=== PATIENT | female | born 1995 | race Hispanic/Latino ===

== ENCOUNTER 2017-12-02 09:00 | Emergency (ER) | payer SELFPAY ==
--- NOTE | 2017-12-02 10:11 | ER ---
Nurse's Notes [facility] Name: Clara Ruth Age: 22 yrs Sex: Female : 1995 Arrival Date: 12/02/2017 Time: 09:03 Bed 15 Private MD: None, None Diagnosis: Acute tonsillitis Presentation: 12/02 09:04 Presenting complaint: Patient states: 2 days ago, my throat had a little itching and i hj woke up today with cough and sore throat; reports fever and chills;. Transition of care: patient was not received from another setting of care. Onset of symptoms was December 02, 2017. Care prior to arrival: None. 09:04 Method Of Arrival: Ambulatory hj 09:04 Acuity: PRATEEK 4 hj Triage Assessment: 09:06 General: Appears in no apparent distress. uncomfortable, Behavior is calm, cooperative, hj appropriate for age. Pain: Complains of pain in throat. EENT: Reports pain when swallowing. 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 - Social history:: Smoking status: unknown. Screenin:15 Abuse screen: Denies threats or abuse. Denies injuries from another. Nutritional jtb screening: No deficits noted. Tuberculosis screening: No symptoms or risk factors identified. Fall Risk None identified. Assessment: 09:06 Respiratory: Airway is patent Respiratory effort is even, unlabored, Respiratory hj pattern is regular, symmetrical, Breath sounds are clear. EENT: Throat. 09:15 General: Appears in no apparent distress. uncomfortable, Behavior is calm, cooperative, jtb appropriate for age. Pain: Complains of pain in Soar throat. Pain does not radiate. Pain currently is 6 out of 10 on a pain scale. Quality of pain is described as scratchy "like my throat is going to tear apart when I cough." Pain began 2-3 days ago. Is continuous. Neuro: Level of Consciousness is awake, alert, obeys commands, Oriented to person, place, time, situation. Cardiovascular: Patient's skin is warm and dry. Respiratory: Reports cough that is Airway is patent Respiratory effort is even, unlabored, Respiratory pattern is regular, symmetrical, Breath sounds are clear bilaterally. Denies shortness of breath. GI: No signs and/or symptoms were reported involving the gastrointestinal system. : No signs and/or symptoms were reported regarding the genitourinary system. EENT: Throat is reddened has enlarged tonsils. Derm: Skin is intact, Skin is dry, Skin is normal, Skin temperature is warm. Musculoskeletal: No signs and/or symptoms reported regarding the musculoskeletal system. Vital Signs: 09:06 BP 123 / 85; Pulse 104; Resp 18; Temp 97.8; Pulse Ox 100% on R/A; Weight 88.45 kg; hj Height 5 ft. 3 in. (160.02 cm); Pain 9/10; 10:00 BP 120 / 84; Pulse 100; Resp 18 S; Pulse Ox 100% on R/A; jl7 09:06 Body Mass Index 34.54 (88.45 kg, 160.02 cm) ED Course: 09:03 Patient arrived in ED. mr 09:03 None, None is Private Physician. mr 09:04 Gail Guardado FNP-C [facility]. kb 09:04 Darío Son MD is Attending Physician. kb 09:05 Triage completed. hj 09:06 Arm band placed on left wrist. hj 09:14 Strep Sent. mh5 09:14 Flu Sent. mh5 09:15 Patient has correct armband on for positive identification. Bed in low position. Call jtb light in reach. Side rails up X 1. Pulse ox on. NIBP on. 09:32 Kun Whitfield, CAMACHO is Primary Nurse. jl7 10:19 No provider procedures requiring assistance completed. Patient did not have IV access jl7 during this emergency room visit. Administered Medications: No medications were administered Outcome: 10:10 Discharge ordered by . kb 10:19 Attestation : I agree with everything documented by Baltazar Edward, Student Nurse. jl7 10:19 Discharged to home ambulatory. 10:19 Condition: stable 10:19 Discharge instructions given to patient, Instructed on discharge instructions, follow up and referral plans. medication usage, Demonstrated understanding of instructions, follow-up care, medications, Prescriptions given X 1. 10:20 Patient left the ED. jl7 Signatures: Gail Guardado FNP-C FNP-CkPaula Salinas mr Diego Carrion RN RN hj Paula Chaparro 5 Kun Whitfield RN RN jl7 Baltazar Edwardtb Corrections: (The following items were deleted from the chart) 09:08 09:06 BP 123 / 85; Pulse 110bpm; Resp 18bpm; Pulse Ox 100% RA; Temp 97.8F; 88.45 kg; hj Height 5 ft. 3 in.; BMI: 34.5; Pain 9/10; hj
--- NOTE | 2017-12-02 10:11 | EDPHYS ---
Physician Documentation [facility] Name: Clara Ruth Age: 22 yrs Sex: Female : 1995 Arrival Date: 12/02/2017 Time: 09:03 Bed 15 Private MD: None, None ED Physician Darío Son HPI: 12/02 09:28 This 22 yrs old Female presents to ER via Ambulatory with complaints of Cough, kb Sore Throat. 09:28 The patient or guardian reports cough, that is intermittent, described as moderate, kb with no sputum. Onset: The symptoms/episode began/occurred 3 day(s) ago. Severity of symptoms: At their worst the symptoms were moderate, in the emergency department the symptoms are unchanged. Modifying factors: The symptoms are alleviated by nothing, the symptoms are aggravated by nothing. Associated signs and symptoms: Pertinent positives: sore throat, Pertinent negatives: chest pain, diarrhea, ear ache, fever, nausea, rhinorrhea, vomiting. The patient has not experienced similar symptoms in the past. The patient has not recently seen a physician. 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 - Social history:: Smoking status: unknown. ROS: 09:28 Neck: Negative for injury, pain, and swelling, Cardiovascular: Negative for chest pain, kb palpitations, and edema, Abdomen/GI: Negative for abdominal pain, nausea, vomiting, diarrhea, and constipation, MS/Extremity: Negative for injury and deformity, Skin: Negative for injury, rash, and discoloration, Neuro: Negative for headache, weakness, numbness, tingling, and seizure. 09:28 Constitutional: Positive for chills, Negative for body aches, fatigue, fever, malaise, poor PO intake, weight loss. 09:28 ENT: Positive for sore throat. 09:28 Respiratory: Positive for cough, with no reported sputum. Exam: 09:28 Constitutional: This is a well developed, well nourished patient who is awake, alert, kb and in no acute distress. Head/Face: Normocephalic, atraumatic. Chest/axilla: Normal chest wall appearance and motion. Nontender with no deformity. No lesions are appreciated. Cardiovascular: Regular rate and rhythm with a normal S1 and S2. No gallops, murmurs, or rubs. Normal PMI, no JVD. No pulse deficits. Respiratory: Lungs have equal breath sounds bilaterally, clear to auscultation and percussion. No rales, rhonchi or wheezes noted. No increased work of breathing, no retractions or nasal flaring. Abdomen/GI: Soft, non-tender, with normal bowel sounds. No distension or tympany. No guarding or rebound. No evidence of tenderness throughout. Skin: Warm, dry with normal turgor. Normal color with no rashes, no lesions, and no evidence of cellulitis. MS/ Extremity: Pulses equal, no cyanosis. Neurovascular intact. Full, normal range of motion. Neuro: Awake and alert, GCS 15, oriented to person, place, time, and situation. Cranial nerves II-XII grossly intact. Motor strength 5/5 in all extremities. Sensory grossly intact. Cerebellar exam normal. Normal gait. 09:28 ENT: Posterior pharynx: Airway: normal, no evidence of obstruction, Tonsils: bilaterally enlarged, with erythema, Uvula: normal, midline, swelling, that is moderate, erythema, that is moderate, exudate, is not appreciated. Vital Signs: 09:06 BP 123 / 85; Pulse 104; Resp 18; Temp 97.8; Pulse Ox 100% on R/A; Weight 88.45 kg; Height 5 ft. 3 in. (160.02 cm); Pain 9/10; 10:00 BP 120 / 84; Pulse 100; Resp 18 S; Pulse Ox 100% on R/A; jl7 09:06 Body Mass Index 34.54 (88.45 kg, 160.02 cm) MDM: 09:11 Patient medically screened. kb 09:32 Data reviewed: vital signs, nurses notes. Data interpreted: Pulse oximetry: on room air kb is 100 %. Interpretation: normal. 10:10 Counseling: I had a detailed discussion with the patient and/or guardian regarding: the kb historical points, exam findings, and any diagnostic results supporting the discharge/admit diagnosis, lab results, the need for outpatient follow up, a family practitioner, to return to the emergency department if symptoms worsen or persist or if there are any questions or concerns that arise at home. 12/02 09:06 Order name: Flu 12/02 09:06 Order name: Strep 12/02 09:53 Order name: Influenza Screen (A ; Complete Time: 09:54 EDMS 12/02 09:54 Order name: Group A Streptococcus Rapid Sc; Complete Time: 09:54 EDMS Administered Medications: No medications were administered Disposition: 12/02/17 10:10 Discharged to Home. Impression: Acute tonsillitis. - Condition is Stable. - Discharge Instructions: Tonsillitis, [id number]. - Prescriptions for Augmentin 875- 125 mg Oral Tablet - take 1 tablet by ORAL route every 12 hours for 7 days; 14 tablet. - Medication Reconciliation Form, Thank You Letter, Antibiotic Education, Prescription Opioid Use, Work release form form. - Follow up: Emergency Department; When: As needed; Reason: Worsening of condition. Follow up: Private Physician; When: 2 - 3 days; Reason: Recheck today's complaints, Continuance of care, Re-evaluation by your physician. Addendum: 12/03/2017 10:33 Co-signature as Attending Physician, Darío Son MD I agree with the assessment and c abarca plan of care. Signatures: Dispatcher [employer] Gail Alarcon, REVERSE ENGINEER-C AMAN-Darío Bourgeois MD MD cha Joaquin, Henry, RN RN hj Kun Whitfield RN RN jl7
[2017-12-02 10:28] VITALS: TEMP 97.8; O2SAT 100
[2017-12-02 10:29] VITALS: BP 120/84
== END 2017-12-02 10:20 | disposition home or self-care (01) ==
LOC: ER 09:00
DX: J03.90 Acute tonsillitis, unspecified (principal); Z88.6 Allergy status to analgesic agent
CPT/HCPCS: 87070; 87081; 87804; 99283

== ENCOUNTER 2017-12-03 17:01 | Emergency (ER) | payer SELFPAY ==
[2017-12-03] MEDS ORDERED: DIPHENHYDRAMINE 50 MG/ML VIAL ONE (17:55)
[2017-12-03] MEDS ORDERED: METHYLPREDNISOLONE 125 MG INJ ONE (17:55)
--- NOTE | 2017-12-03 18:22 | ER ---
Nurse's Notes [facility] Name: Clara Ruth Age: 22 yrs Sex: Female : 1995 Arrival Date: 12/03/2017 Time: 17:02 Bed 8 Private MD: Diagnosis: Urticaria, unspecified Presentation: 12/03 17:17 Presenting complaint: Patient states: Reports hand swelling and itching and swelling to aj lips that started today. Patient took Dayquil today. Seen yesterday and DX with tonsillitis. Has not began ABX. Transition of care: patient was not received from another setting of care. Onset: The symptoms/episode began/occurred today. Anaphylaxis evaluation, no signs or symptoms of anaphylaxis were noted. Onset of symptoms was December 03, 2017. Care prior to arrival: None. 17:17 Method Of Arrival: Ambulatory 17:17 Acuity: PRATEEK 3 aj Triage Assessment: 17:19 General: Appears in no apparent distress. uncomfortable, Behavior is calm, cooperative, aj appropriate for age. Pain: Denies pain. EENT: Swelling to both lips. Neuro: Level of Consciousness is awake, alert, obeys commands, Oriented to person, place, time, situation. Respiratory: Airway is patent Respiratory effort is even, unlabored, Respiratory pattern is regular, symmetrical. Derm: Skin is intact, is healthy with good turgor, Skin is pink, warm \T\ dry. normal. 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 - Social history:: Smoking status: Patient/guardian denies using tobacco. - Family history:: not pertinent. - Hospitalizations: : No recent hospitalization is reported. Screenin:30 Abuse screen: Denies threats or abuse. Denies injuries from another. Nutritional hb screening: No deficits noted. Tuberculosis screening: No symptoms or risk factors identified. Fall Risk None identified. Assessment: 17:30 General: Appears in no apparent distress. Behavior is calm, cooperative. Pain: Denies hb pain. Neuro: Level of Consciousness is awake, alert, obeys commands, Oriented to person, place, time, situation. Cardiovascular: Capillary refill < 3 seconds Patient's skin is warm and dry. Respiratory: Airway is patent Respiratory effort is even, unlabored, Respiratory pattern is regular, symmetrical, Breath sounds are clear bilaterally. GI: No signs and/or symptoms were reported involving the gastrointestinal system. : No signs and/or symptoms were reported regarding the genitourinary system. EENT: No signs and/or symptoms were reported regarding the EENT system. Derm: Skin is pink, warm \T\ dry. Reports lip swelling and tingling. Musculoskeletal: Range of motion: intact in all extremities. 18:30 Reassessment: Patient appears in no apparent distress at this time. Patient and/or hb family updated on plan of care and expected duration. Pain level reassessed. Patient is alert, oriented x 3, equal unlabored respirations, skin warm/dry/pink. Patient denies pain at this time. Patient states feeling better. Patient states symptoms have improved. Vital Signs: 17:19 BP 130 / 88; Pulse 93; Resp 16; Temp 98.8; Pulse Ox 100% on R/A; Weight 88.45 kg; aj Height 5 ft. 3 in. (160.02 cm); Pain 0/10; 18:15 BP 128 / 78; Pulse 88; Resp 14; Pulse Ox 100% on R/A; Pain 0/10; hb 17:19 Body Mass Index 34.54 (88.45 kg, 160.02 cm) aj ED Course: 17:02 Patient arrived in ED. mr 17:18 Triage completed. aj 17:19 Arm band placed on left wrist. Patient placed in an exam room. aj 17:21 Salvador Guzman MD is Attending Physician. rn 17:30 Patient has correct armband on for positive identification. Bed in low position. Call hb light in reach. Side rails up X 1. 17:31 Alivia Pereira, CAMACHO is Primary Nurse. hb 18:51 No provider procedures requiring assistance completed. Patient did not have IV access hb during this emergency room visit. Administered Medications: 17:36 Drug: Benadryl 50 mg Route: IM; Site: right deltoid; hb 18:00 Follow up: Response: No adverse reaction hb 17:36 Drug: SOLU-Medrol 125 mg Route: IM; Site: right deltoid; hb 18:00 Follow up: Response: No adverse reaction hb Outcome: 18:21 Discharge ordered by . rn 18:51 Discharged to home ambulatory, with family. hb 18:51 Condition: stable 18:51 Discharge instructions given to patient, Instructed on discharge instructions, follow up and referral plans. medication usage, Demonstrated understanding of instructions, follow-up care, medications, Prescriptions given X 1. 18:52 Patient left the ED. hb Signatures: Kamryn Mascorro RN RN aj Rivera, Maria mr Nieto, Roman, MD MD rn Baxter, Heather, RN RN hb
--- NOTE | 2017-12-03 18:22 | EDPHYS ---
Physician Documentation [facility] Name: Clara Ruth Age: 22 yrs Sex: Female : 1995 Arrival Date: 12/03/2017 Time: 17:02 Bed 8 Private MD: ED Physician Salvador Guzman HPI: 12/03 17:30 This 22 yrs old Female presents to ER via Ambulatory with complaints of rn Allergic Reaction. 17:30 The patient presents with itching, rash. Onset: The symptoms/episode began/occurred rn today. Possible causes: The patient has no known obvious cause for the symptoms. Severity of symptoms: in the emergency department the symptoms are unchanged. The patient has not experienced similar symptoms in the past. Reports itching, diffusely, took dayquil today, has taken before but this time took one from [employer], has allergy to aleve, didn't check type of dayquil or ingredients, no trouble swallowing or breathing. . 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 - Social history:: Smoking status: Patient/guardian denies using tobacco. - Family history:: not pertinent. - Hospitalizations: : No recent hospitalization is reported. ROS: 17:30 Constitutional: Negative for fever, chills, and weight loss, Eyes: Negative for injury, rn pain, redness, and discharge, Neck: Negative for injury, pain, and swelling, Cardiovascular: Negative for chest pain, palpitations, and edema, Respiratory: Negative for shortness of breath, cough, wheezing, and pleuritic chest pain, Abdomen/GI: Negative for abdominal pain, nausea, vomiting, diarrhea, and constipation, Back: Negative for injury and pain, MS/Extremity: Negative for injury and deformity, Skin: Negative for injury Neuro: Negative for headache, weakness, numbness, tingling, and seizure. Exam: 17:30 Constitutional: This is a well developed, well nourished patient who is awake, alert, rn and in no acute distress. Head/Face: Normocephalic, atraumatic. Eyes: Pupils equal round and reactive to light, extra-ocular motions intact. Lids and lashes normal. Conjunctiva and sclera are non-icteric and not injected. Cornea within normal limits. Periorbital areas with no swelling, redness, or edema. ENT: no oral lesions, no stridor, + mild tonsillar hypertrophy Skin: diffuse urticaria, no skin sloughing Neuro: Awake and alert, GCS 15, oriented to person, place, time, and situation. Cranial nerves II-XII grossly intact. Motor strength 5/5 in all extremities. Sensory grossly intact. Cerebellar exam normal. Normal gait. Vital Signs: 17:19 BP 130 / 88; Pulse 93; Resp 16; Temp 98.8; Pulse Ox 100% on R/A; Weight 88.45 kg; aj Height 5 ft. 3 in. (160.02 cm); Pain 0/10; 18:15 BP 128 / 78; Pulse 88; Resp 14; Pulse Ox 100% on R/A; Pain 0/10; hb 17:19 Body Mass Index 34.54 (88.45 kg, 160.02 cm) aj MDM: 17:21 Patient medically screened. rn 18:20 Differential diagnosis: urticaria. Data reviewed: vital signs, nurses notes, and as a rn result, I will discharge patient. Counseling: I had a detailed discussion with the patient and/or guardian regarding: the historical points, exam findings, and any diagnostic results supporting the discharge/admit diagnosis, the need for outpatient follow up, to return to the emergency department if symptoms worsen or persist or if there are any questions or concerns that arise at home. Response to treatment: the patient's symptoms have markedly improved after treatment, and as a result, I will discharge patient. Special discussion: I discussed with the patient/guardian in detail that at this point there is no indication for admission to the hospital. It is understood, however, that if the symptoms persist or worsen the patient needs to return immediately for re-evaluation. Administered Medications: 17:36 Drug: Benadryl 50 mg Route: IM; Site: right deltoid; hb 18:00 Follow up: Response: No adverse reaction hb 17:36 Drug: SOLU-Medrol 125 mg Route: IM; Site: right deltoid; hb 18:00 Follow up: Response: No adverse reaction hb Disposition: 12/03/17 18:21 Discharged to Home. Impression: Urticaria, unspecified. - Condition is Stable. - Discharge Instructions: Hives. - Prescriptions for Prednisone 20 mg Oral Tablet - take 3 tablet by ORAL route once daily for 5 days; 15 tablet. - Medication Reconciliation Form, Thank You Letter, Antibiotic Education, Prescription Opioid Use form. - Follow up: Private Physician; When: As needed; Reason: Recheck today's complaints, Re-evaluation by your physician. - Problem is new. - Symptoms have improved. Signatures: Kamryn Mascorro, RN RN Salvador Ruiz MD MD rn Baxter, Heather, RN RN
[2017-12-03 19:21] VITALS: TEMP 98.8; O2SAT 100
[2017-12-03 19:22] VITALS: BP 128/78
== END 2017-12-03 18:52 | disposition home or self-care (01) ==
LOC: ER 17:01
DX: L50.9 Urticaria, unspecified (principal)
CPT/HCPCS: 96372; 99283; J2930

== ENCOUNTER 2018-01-11 06:04 | Emergency (ER) | payer SELFPAY ==
--- OUTSIDE RECORDS SUMMARY | 2018-01-11 06:07 | XMS REPORT | Clinical Summary ---
:1995 Author Organization [facility] Address [address] [place] [address] Phone Care Team Providers Name Role Phone Unavailable Primary Care Provider Unavailable Allergies Active Allergy Reactions Severity Noted Date Comments Naproxen Sodium Hives 02/15/2014 Current Medications No known medications Active Problems Not on file Social History Tobacco Use Types Packs/Day Years Used Date Former Smoker Cigarettes 2 Alcohol Use Drinks/Week oz/Week Comments No Sex Assigned at Date Recorded Not on file Last Filed Vital Signs Not on file Plan of Treatment Not on file Results Not on fileafter 01/10/2017
[2018-01-11] MEDS ORDERED: DEXAMETHASONE 4 MG/ML VIAL ONE (06:53)
--- NOTE | 2018-01-11 07:25 | ER ---
Nurse's Notes [facility] Name: Clara Ruth Age: 22 yrs Sex: Female : 1995 Arrival Date: 01/11/2018 Time: 06:08 Bed 5 Private MD: Diagnosis: Acute pharyngitis Presentation: 01/11 06:10 Presenting complaint: Patient states: that for the past 2 days she has been having fc swollen tonsils, nasal congestion, sore achy body and itching all over. Also has a headache. Transition of care: patient was not received from another setting of care. Onset of symptoms was January 09, 2018. Initial Sepsis Screen: Does the patient meet any 2 criteria? HR > 90 bpm. Yes Does the patient have a suspected source of infection? Yes: No. Patient's initial sepsis screen is negative. Care prior to arrival: None. 06:10 Method Of Arrival: Ambulatory 06:10 Acuity: PRATEEK 4 Triage Assessment: 06:10 Headache History: The patient has had previous headaches. General: Appears fc uncomfortable, Behavior is calm, cooperative, appropriate for age. Pain: Complains of pain in throat Pain currently is 10 out of 10 on a pain scale. Quality of pain is described as burning, aching, Pain began 2-3 days ago. Is continuous, Also complains of no other associated symptoms. EENT: Throat is reddened has enlarged tonsils bilaterally Reports nasal congestion. Neuro: Level of Consciousness is awake, alert, obeys commands, Oriented to person, place, time, situation, Leather Whitener are equal bilaterally Moves all extremities. Full function Gait is steady, Speech is normal, Facial symmetry appears normal, Reports headache in entire. Cardiovascular: No deficits noted. Respiratory: No deficits noted. GI: No deficits noted. : No deficits noted. Derm: Skin is pink, warm \T\ dry. Reports itching. Musculoskeletal: Circulation, motion, and sensation intact. Capillary refill < 3 seconds, Range of motion: intact in all extremities. 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 - Social history:: Smoking status: Patient/guardian denies using tobacco, Patient uses street drugs, marijuana, Patient/guardian denies using alcohol. Screenin:23 Abuse screen: Denies threats or abuse. Nutritional screening: No deficits noted. Tuberculosis screening: No symptoms or risk factors identified. Fall Risk None identified. Assessment: 06:10 General: Appears in no apparent distress. comfortable, Behavior is calm, cooperative, bp appropriate for age. Pain: Complains of pain in neck. Neuro: Level of Consciousness is awake, alert, obeys commands, Oriented to person, place, time, situation, Appropriate for age. Cardiovascular: No deficits noted. Respiratory: Airway is patent Respiratory effort is even, Respiratory pattern is regular. GI: No deficits noted. : No deficits noted. EENT: Throat has patchy exudate has enlarged tonsils bilaterally with gag reflex present. Derm: No deficits noted. Musculoskeletal: Circulation, motion, and sensation intact. Range of motion: intact in all extremities. 07:20 Reassessment: Patient appears in no apparent distress at this time. Patient is resting ae1 with eyes closed, respirations even and unlabored, patient easily awakened by verbal stimuli. Warm blanket provided, lights dimmed per patient. Vital Signs: 06:10 BP 121 / 91; Pulse 112; Resp 18; Temp 99.2(O); Pulse Ox 100% on R/A; Weight 86.18 kg (R); Height 5 ft. 3 in. (160.02 cm) (R); Pain 10/10; 07:32 BP 128 / 97; Pulse 99; Resp 18; Pulse Ox 99% on R/A; ae1 06:10 Body Mass Index 33.66 (86.18 kg, 160.02 cm) ED Course: 06:08 Patient arrived in ED. al2 06:10 Arm band placed on Patient placed in an exam room, on a stretcher. 06:13 Kamlesh Mercado PA is PHCP. jr8 06:13 Darío Son MD is Attending Physician. jr8 06:18 Mamadou Brand, CAMACHO is Primary Nurse. bp 06:19 Triage completed. 06:23 Patient has correct armband on for positive identification. Bed in low position. Call fc light in reach. Pulse ox on. NIBP on. 06:23 No provider procedures requiring assistance completed. 07:33 Patient did not have IV access during this emergency room visit. ae1 Administered Medications: 07:06 Drug: Decadron 4 mg Route: IM; Site: right deltoid; bp 07:35 Follow up: Response: No adverse reaction ae1 Outcome: 07:24 Discharge ordered by MD. becker 07:33 Discharged to home ambulatory. ae1 07:33 Condition: stable 07:33 Discharge instructions given to patient, Instructed on discharge instructions, follow up and referral plans. medication usage, Demonstrated understanding of instructions, Prescriptions given X 1. 07:34 Patient left the ED. ae1 Signatures: Nilam Graham RN RN Kamlesh Mercado PA PA jr8 Elliott, Andrea, RN RN ae1 Mamadou Brand RN RN bp Choe, Kimmie hector
--- NOTE | 2018-01-11 07:25 | EDPHYS ---
Physician Documentation [facility] Name: Clara Ruth Age: 22 yrs Sex: Female : 1995 Arrival Date: 01/11/2018 Time: 06:08 Bed 5 Private MD: ED Physician Darío Son HPI: 01/11 06:53 This 22 yrs old Female presents to ER via Ambulatory with complaints of jr8 Headache, Sore Throat. 06:53 The patient complains of pain to the forehead. Onset: The symptoms/episode jr8 began/occurred acutely, yesterday. Associated signs and symptoms: Pertinent positives: sore throat . Severity of symptoms: At its worst the pain was mild, in the emergency department the pain is unchanged. The patient has not experienced similar symptoms in the past. The patient has not recently seen a physician. 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 - Social history:: Smoking status: Patient/guardian denies using tobacco, Patient uses street drugs, marijuana, Patient/guardian denies using alcohol. ROS: 06:53 Eyes: Negative for injury, pain, redness, and discharge, Neck: Negative for injury, jr8 pain, and swelling, Cardiovascular: Negative for chest pain, palpitations, and edema, Respiratory: Negative for shortness of breath, cough, wheezing, and pleuritic chest pain, Abdomen/GI: Negative for abdominal pain, nausea, vomiting, diarrhea, and constipation, Back: Negative for injury and pain, MS/Extremity: Negative for injury and deformity, Skin: Negative for injury, rash, and discoloration. 06:53 ENT: Positive for sore throat, Negative for drainage from ear(s), ear pain, nasal discharge, rhinorrhea, sinus congestion, sinus pain. 06:53 Neuro: Positive for headache, Negative for altered mental status, dizziness, gait disturbance, hearing loss, loss of consciousness, numbness, seizure activity, speech changes, syncope, near syncope, tingling, tinnitus, tremor, visual changes, weakness. Exam: 06:53 Constitutional: This is a well developed, well nourished patient who is awake, alert, jr8 and in no acute distress. Eyes: Pupils equal round and reactive to light, extra-ocular motions intact. Lids and lashes normal. Conjunctiva and sclera are non-icteric and not injected. Cornea within normal limits. Periorbital areas with no swelling, redness, or edema. Neck: Trachea midline, no thyromegaly or masses palpated, and no cervical lymphadenopathy. Supple, full range of motion without nuchal rigidity, or vertebral point tenderness. No Meningismus. Cardiovascular: Regular rate and rhythm with a normal S1 and S2. No gallops, murmurs, or rubs. Normal PMI, no JVD. No pulse deficits. Respiratory: Lungs have equal breath sounds bilaterally, clear to auscultation and percussion. No rales, rhonchi or wheezes noted. No increased work of breathing, no retractions or nasal flaring. Abdomen/GI: Soft, non-tender, with normal bowel sounds. No distension or tympany. No guarding or rebound. No evidence of tenderness throughout. Back: No spinal tenderness. No costovertebral tenderness. Full range of motion. Skin: Warm, dry with normal turgor. Normal color with no rashes, no lesions, and no evidence of cellulitis. MS/ Extremity: Pulses equal, no cyanosis. Neurovascular intact. Full, normal range of motion. Neuro: Awake and alert, GCS 15, oriented to person, place, time, and situation. Cranial nerves II-XII grossly intact. Motor strength 5/5 in all extremities. Sensory grossly intact. Cerebellar exam normal. Normal gait. 06:53 ENT: Exam is negative for earache, ear discharge, hemotympanum, TM abnormalities, nasal discharge, Mouth: Lips: moist, Oral mucosa: pink and intact, moist, Gums: pink, Tongue: is moist, Posterior pharynx: Airway: patent, Tonsils: bilaterally enlarged, with erythema, with exudate, no ulcerations, Uvula: midline, non-edematous, no erythema, swelling, is not appreciated, erythema, that is mild. Vital Signs: 06:10 BP 121 / 91; Pulse 112; Resp 18; Temp 99.2(O); Pulse Ox 100% on R/A; Weight 86.18 kg fc (R); Height 5 ft. 3 in. (160.02 cm) (R); Pain 10/10; 07:32 BP 128 / 97; Pulse 99; Resp 18; Pulse Ox 99% on R/A; ae1 06:10 Body Mass Index 33.66 (86.18 kg, 160.02 cm) MDM: 06:13 Patient medically screened. 8 07:22 Data reviewed: vital signs, nurses notes, lab test result(s), and as a result, I will jr8 discharge patient. Data interpreted: Pulse oximetry: on room air is 100 %. Interpretation: normal. Counseling: I had a detailed discussion with the patient and/or guardian regarding: the historical points, exam findings, and any diagnostic results supporting the discharge/admit diagnosis, lab results, the need for outpatient follow up, a family practitioner, to return to the emergency department if symptoms worsen or persist or if there are any questions or concerns that arise at home. 01/11 06:37 Order name: Strep; Complete Time: 07:22 jr 01/11 06:48 Order name: Urine Dipstick--Ancillary (enter results) [facility] 01/11 06:48 Order name: Urine --Ancillary (enter results) [facility] 01/11 06:48 Order name: Urine Dipstick-Ancillary (obtain specimen); Complete Time: 06:48 [facility] 01/11 07:04 Order name: Throat Culture [facility] 01/11 06:48 Order name: Urine Test (obtain specimen); Complete Time: 06:48 em Administered Medications: 07:06 Drug: Decadron 4 mg Route: IM; Site: right deltoid; bp 07:35 Follow up: Response: No adverse reaction ae1 Disposition: 14:28 Co-signature as Attending Physician, Darío Son MD I agree with the assessment and johanna plan of care. Disposition: 01/11/18 07:24 Discharged to Home. Impression: Acute pharyngitis. - Condition is Stable. - Discharge Instructions: Pharyngitis, Salt Water Gargle. - Prescriptions for Augmentin 875- 125 mg Oral Tablet - take 1 tablet by ORAL route every 12 hours for 10 days; 20 tablet. - Work release form, Medication Reconciliation Form, Thank You Letter, Antibiotic Education, Prescription Opioid Use form. - Follow up: Private Physician; When: 1 week; Reason: Recheck today's complaints, Continuance of care, Re-evaluation by your physician. - Problem is new. - Symptoms have improved. Signatures: Dispatcher [employer] Darío Tatum MD MD cha Chretien, Felicia, RN RN Davie Ball em1 Kamlesh Mercado PA PA jr8 Toni Azar RN RN ae1 Mamadou Brand RN RN bp
[2018-01-11 07:39] VITALS: TEMP 99.2
[2018-01-11 07:40] VITALS: BP 128/97; O2SAT 99
[2018-01-11 08:43] LABS: Urine Blood 3+ (NEG); Urine Glucose NEGATIVE (NEG); Urine Protein 2+ (NEG); Urine Specific Gravity 1.025 (1.005-1.030)
== END 2018-01-11 07:34 | disposition home or self-care (01) ==
LOC: ER 06:04
DX: J02.9 Acute pharyngitis, unspecified (principal)
CPT/HCPCS: 81003; 81025; 87070; 87081; 96372; 99283

== ENCOUNTER 2018-03-06 15:26 | Emergency (ER) | payer SELFPAY ==
--- OUTSIDE RECORDS SUMMARY | 2018-03-06 15:29 | XMS REPORT | Clinical Summary ---
:1995 Author Organization [facility] Address [address] [place] [address] Phone Care Team Providers Name Role Phone [...] Not on file Results Not on fileafter 03/05/2017
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
[2018-03-06 17:45] VITALS: BP 124/89; TEMP 97.7; O2SAT 100
== END 2018-03-06 17:13 | disposition home or self-care (01) ==
LOC: ER 15:26
DX: S13.4XXA Sprain of ligaments of cervical spine, initial encounter (principal); V57.5XXA Driver of pick-up truck or van injured in collision with fixed or stationary object in traffic accident, initial encounter
CPT/HCPCS: 70450; 72125; 99284

== ENCOUNTER 2018-04-21 12:38 | Emergency (ER) | payer SELFPAY ==
--- OUTSIDE RECORDS SUMMARY | 2018-04-21 12:40 | XMS REPORT | Clinical Summary ---
:1995 Author Organization [facility] Address [address] [place] [address] Phone Care Team Providers Name Role Phone [...] Not on file Results Not on fileafter 04/20/2017
--- NOTE | 2018-04-21 14:14 | EDPHYS ---
Physician Documentation [facility] Name: Clara Ruth Age: 22 yrs Sex: Female : 1995 Arrival Date: 04/21/2018 Time: 12:41 Bed 25 Private MD: None, None ED Physician Darío Son HPI: 04/21 14:06 This 22 yrs old Female presents to ER via Ambulatory with complaints of Knee jr8 Pain. 14:06 Onset: The symptoms/episode began/occurred gradually, 3 week(s) ago. Modifying factors: jr8 The symptoms are alleviated by nothing. the symptoms are aggravated by movement, weight bearing. Associated signs and symptoms: The patient has no apparent associated signs or symptoms. Severity of symptoms: At their worst the symptoms were mild, in the emergency department the symptoms are unchanged. The patient has not experienced similar symptoms in the past. The patient has not recently seen a physician. Patient stated that she fell on knee some weeks ago. Stated that she has had pain since then with weight bearing and twisting of knee. Worse the other day and wanted it to be evaluated . DIRECTOR COUNCIL ON AGING: 13:16 LMP N/A - control method ch Historical: - Allergies: 13:16 Aleve; ch - Home Meds: 13:16 IUD [Active]; ch - PMHx: 13:16 None; ch - PSHx: 13:16 Cholecystectomy; r hand; ch - Immunization history:: Adult Immunizations up to date, Flu vaccine is not up to date. - Social history:: Smoking status: Patient/guardian denies using tobacco, Patient uses alcohol, but reports only rare drinking. Patient/guardian denies using street drugs. - Ebola Screening: : Patient negative for fever greater than or equal to 101.5 degrees Fahrenheit, and additional compatible Ebola Virus Disease symptoms Patient denies exposure to infectious person Patient denies travel to an Ebola-affected area in the 21 days before illness onset No symptoms or risks identified at this time. ROS: 14:06 Eyes: Negative for injury, pain, redness, and discharge, ENT: Negative for injury, jr8 pain, and discharge, Neck: Negative for injury, pain, and swelling, Cardiovascular: Negative for chest pain, palpitations, and edema, Respiratory: Negative for shortness of breath, cough, wheezing, and pleuritic chest pain, Abdomen/GI: Negative for abdominal pain, nausea, vomiting, diarrhea, and constipation, Back: Negative for injury and pain, Skin: Negative for injury, rash, and discoloration, Neuro: Negative for headache, weakness, numbness, tingling, and seizure. 14:06 MS/extremity: Positive for pain, tenderness, of the right knee. Exam: 14:06 Eyes: Pupils equal round and reactive to light, extra-ocular motions intact. Lids and jr8 lashes normal. Conjunctiva and sclera are non-icteric and not injected. Cornea within normal limits. Periorbital areas with no swelling, redness, or edema. ENT: Nares patent. No nasal discharge, no septal abnormalities noted. Tympanic membranes are normal and external auditory canals are clear. Oropharynx with no redness, swelling, or masses, exudates, or evidence of obstruction, uvula midline. Mucous membranes moist. Neck: Trachea midline, no thyromegaly or masses palpated, and no cervical lymphadenopathy. Supple, full range of motion without nuchal rigidity, or vertebral point tenderness. No Meningismus. Cardiovascular: Regular rate and rhythm with a normal S1 and S2. No gallops, murmurs, or rubs. Normal PMI, no JVD. No pulse deficits. Respiratory: Lungs have equal breath sounds bilaterally, clear to auscultation and percussion. No rales, rhonchi or wheezes noted. No increased work of breathing, no retractions or nasal flaring. Abdomen/GI: Soft, non-tender, with normal bowel sounds. No distension or tympany. No guarding or rebound. No evidence of tenderness throughout. Back: No spinal tenderness. No costovertebral tenderness. Full range of motion. Skin: Warm, dry with normal turgor. Normal color with no rashes, no lesions, and no evidence of cellulitis. Neuro: Awake and alert, GCS 15, oriented to person, place, time, and situation. Cranial nerves II-XII grossly intact. Motor strength 5/5 in all extremities. Sensory grossly intact. Cerebellar exam normal. Normal gait. 14:06 Musculoskeletal/extremity: Extremities: grossly normal except: noted in the right knee: pain, tenderness, ROM: intact in all extremities, Circulation is intact in all extremities. Sensation intact. Vital Signs: 13:16 BP 130 / 79; Pulse 81; Resp 16; Temp 98.3; Pulse Ox 99% on R/A; Weight 84.37 kg; Height 5 ft. 3 in. (160.02 cm); Pain 3/10; 14:24 BP 128 / 90; Pulse 90; Resp 15; Temp 98.5; Pulse Ox 100% on R/A; Pain 2/10; ch 13:16 Body Mass Index 32.95 (84.37 kg, 160.02 cm) MDM: 13:09 Patient medically screened. jr8 14:12 Data reviewed: vital signs, nurses notes, radiologic studies, plain films, and as a jr8 result, I will discharge patient. Data interpreted: Pulse oximetry: on room air is 99 %. Interpretation: normal. Counseling: I had a detailed discussion with the patient and/or guardian regarding: the historical points, exam findings, and any diagnostic results supporting the discharge/admit diagnosis, radiology results, the need for outpatient follow up, a orthopedic surgeon, to return to the emergency department if symptoms worsen or persist or if there are any questions or concerns that arise at home. 04/21 13:35 Order name: XRAY Knee RIGHT 3 view jr8 Administered Medications: No medications were administered Disposition: 04/22 14:02 Co-signature as Attending Physician, Darío Son MD I agree with the assessment and johanna plan of care. Disposition: 04/21/18 14:13 Discharged to Home. Impression: Sprain of other specified parts of left knee. - Condition is Stable. - Discharge Instructions: Knee Sprain. - Prescriptions for Tramadol 50 mg Oral Tablet - take 1 tablet by ORAL route every 8 hours as needed; 12 tablet. - Work release form, Family Work Release, Medication Reconciliation Form, Thank You Letter, Antibiotic Education, Prescription Opioid Use form. - Follow up: Rosendo Abebe MD; When: 10 - 14 days; Reason: If symptoms return, Recheck today's complaints, Continuance of care, Re-evaluation by your physician. - Problem is new. - Symptoms are unchanged. Signatures: Dispatcher [employer] Maia Cabrera, RN Darío Corcoran ch, MD MD cha Roszak, Josh, PA PA jr8 Corrections: (The following items were deleted from the chart) 04/21 14:29 14:13 04/21/2018 14:13 Discharged to Home. Impression: Sprain of other specified parts ch of left knee. Condition is Stable. Forms are Medication Reconciliation Form, Thank You Letter, Antibiotic Education, Prescription Opioid Use. Follow up: Rosendo Abebe; When: 10 - 14 days; Reason: If symptoms return, Recheck today's complaints, Continuance of care, Re-evaluation by your physician. Problem is new. Symptoms are unchanged. jr8
--- NOTE | 2018-04-21 14:14 | ER ---
Nurse's Notes [facility] Name: Clara Ruth Age: 22 yrs Sex: Female : 1995 Arrival Date: 04/21/2018 Time: 12:41 Bed 25 Private MD: None, None Diagnosis: Sprain of other specified parts of left knee Presentation: 04/21 13:14 Presenting complaint: Patient states: knee pain for the past 4 weeks, happened [place] can walk on the knee but feels pain with twisting. Transition of care: patient was not received from another setting of care. Onset of symptoms was March 18, 2018. Risk Assessment: Do you want to hurt yourself or someone else? Patient reports no desire to harm self or others. Initial Sepsis Screen: Does the patient meet any 2 criteria? No. Patient's initial sepsis screen is negative. Does the patient have a suspected source of infection? No. Patient's initial sepsis screen is negative. Care prior to arrival: None. 13:14 Method Of Arrival: Ambulatory 13:14 Acuity: PRATEEK 5 Triage Assessment: 13:16 General: Appears in no apparent distress. comfortable, Behavior is calm, cooperative, ch appropriate for age. Pain: Complains of pain in right knee Pain currently is 3 out of 10 on a pain scale. Neuro: No deficits noted. GENERAL DOC: 13:16 LMP N/A - control method Historical: - Allergies: 13:16 Aleve; - Home Meds: 13:16 IUD [Active]; - PMHx: 13:16 None; - PSHx: 13:16 Cholecystectomy; r hand; - Immunization history:: Adult Immunizations up to date, Flu vaccine is not up to date. - Social history:: Smoking status: Patient/guardian denies using tobacco, Patient uses alcohol, but reports only rare drinking. Patient/guardian denies using street drugs. - Ebola Screening: : Patient negative for fever greater than or equal to 101.5 degrees Fahrenheit, and additional compatible Ebola Virus Disease symptoms Patient denies exposure to infectious person Patient denies travel to an Ebola-affected area in the 21 days before illness onset No symptoms or risks identified at this time. Screenin:17 Abuse screen: Denies threats or abuse. Denies injuries from another. Nutritional ch screening: No deficits noted. Tuberculosis screening: No symptoms or risk factors identified. Fall Risk None identified. Assessment: 13:17 General: Appears in no apparent distress. comfortable. Pain: Complains of pain in right ch knee Pain currently is 3 out of 10 on a pain scale. Cardiovascular: No deficits noted. Respiratory: No deficits noted. GI: No deficits noted. Derm: Skin is pink, warm \T\ dry. Musculoskeletal: Circulation, motion, and sensation intact. Capillary refill < 3 seconds, in bilateral fingers. toes. Range of motion: intact in all extremities, Swelling absent. 14:24 Reassessment: Patient appears in no apparent distress at this time. Patient and/or ch family updated on plan of care and expected duration. Pain level reassessed. Patient is alert, oriented x 3, equal unlabored respirations, skin warm/dry/pink. Patient states feeling better. Patient states symptoms have improved. Vital Signs: 13:16 BP 130 / 79; Pulse 81; Resp 16; Temp 98.3; Pulse Ox 99% on R/A; Weight 84.37 kg; Height ch 5 ft. 3 in. (160.02 cm); Pain 3/10; 14:24 BP 128 / 90; Pulse 90; Resp 15; Temp 98.5; Pulse Ox 100% on R/A; Pain 2/10; ch 13:16 Body Mass Index 32.95 (84.37 kg, 160.02 cm) ED Course: 12:41 Patient arrived in ED. mr 12:41 None, None is Private Physician. mr 13:09 [facility] jr8 13:09 Darío Son MD is Attending Physician. jr8 13:14 Maia Kelly, CAMACHO is Primary Nurse. ch 13:15 Triage completed. ch 13:16 Arm band placed on left wrist. Patient placed in an exam room. ch 13:17 No apparent distress. Resting quietly. ch 13:17 Patient has correct armband on for positive identification. Placed in gown. Bed in low ch position. Call light in reach. Side rails up X 1. Adult w/ patient. 13:17 No provider procedures requiring assistance completed. Patient did not have IV access ch during this emergency room visit. 13:58 X-ray completed. Portable x-ray completed in exam room. Patient tolerated procedure la2 well. 14:06 XRAY Knee RIGHT 3 view In Process Unspecified. EDMS 14:12 Rosendo Abebe MD is Referral Physician. jr8 14:24 Warm blanket given. Administered Medications: No medications were administered Outcome: 14:13 Discharge ordered by . jr8 14:24 Discharged to home ambulatory, with family. 14:24 Condition: stable 14:24 Discharge instructions given to patient, family, Instructed on discharge instructions, follow up and referral plans. medication usage, Demonstrated understanding of instructions, follow-up care, medications, Prescriptions given X 1. 14:29 Patient left the ED. Signatures: Dispatcher [employer] EDNJ Maia Kelly RN RN Paula Cortez Josh, PA PA jr8 Trista Rodriguez la2
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
[2018-04-21 14:45] VITALS: BP 128/90; TEMP 98.5; O2SAT 100
== END 2018-04-21 14:29 | disposition home or self-care (01) ==
LOC: ER 12:38
DX: S83.8X1A Sprain of other specified parts of right knee, initial encounter (principal); X50.1XXA Overexertion from prolonged static or awkward postures, initial encounter; Y93.89 Activity, other specified; Y92.9 Unspecified place or not applicable; Y99.9 Unspecified external cause status; Z88.6 Allergy status to analgesic agent
CPT/HCPCS: 99283

== ENCOUNTER 2018-08-15 17:39 | Emergency (ER) | payer SELFPAY ==
--- OUTSIDE RECORDS SUMMARY | 2018-08-15 17:42 | XMS REPORT | Clinical Summary ---
:1995 Author Organization [facility] Address [address] [place] [id number] Care Team Providers Name Role Phone Simona Rosad[place]ah Primary Care Provider Unavailable Allergies Active Allergy Reactions Severity Noted Date Comments Naproxen Sodium Hives 02/15/2014 Medications No known medications Active Problems Not on file Social History Tobacco Use Types Packs/Day Years Used Date Former Smoker Cigarettes 2 Alcohol Use Drinks/Week oz/Week Comments No Sex Assigned at Date Recorded Not on file Job Start Date Occupation Industry Not on file Not on file Not on file Travel History Travel Start Travel End No recent travel history available. Last Filed Vital Signs Not on file Plan of Treatment Not on file Results Not on fileafter 08/14/2017 Insurance Payer Benefit Plan / Subscriber ID Type Phone Address Group MEDICAID - MEDICAID MEDICAID COMM xxxxxxxxx Medicaid Contracted [facility]
[2018-08-15 19:21] LABS: Urine Blood 2+ (NEG); Urine Glucose NEGATIVE (NEG); Urine Protein 1+ (NEG); Urine Specific Gravity 1.025 (1.005-1.030)
[2018-08-15] MEDS ORDERED: NA CHLORIDE 0.9% 1,000 ML ONE (19:59)
[2018-08-15] MEDS ORDERED: ONDANSETRON 4 MG/2 ML VIAL ONE (19:59)
--- NOTE | 2018-08-15 20:15 | ER ---
Nurse's Notes [facility] Name: Clara Ruth Age: 23 yrs Sex: Female : 1995 Arrival Date: 08/15/2018 Time: 17:43 Bed 15 Private MD: None, None Diagnosis: Vomiting, unspecified;Diarrhea, unspecified;Dehydration Presentation: 08/15 18:25 Presenting complaint: Patient states: N/V/D since yesterday. Patient denies pain. "I aj had to call in to work today so I need to get a note.". Transition of care: patient was not received from another setting of care. Onset of symptoms was August 14, 2018. Risk Assessment: Do you want to hurt yourself or someone else? Patient reports no desire to harm self or others. Initial Sepsis Screen: Does the patient meet any 2 criteria? No. Patient's initial sepsis screen is negative. Does the patient have a suspected source of infection? No. Patient's initial sepsis screen is negative. Care prior to arrival: None. 18:25 Method Of Arrival: Ambulatory 18:25 Acuity: PRATEEK 3 aj Triage Assessment: 18:26 General: Appears in no apparent distress. comfortable, Behavior is calm, cooperative, aj appropriate for age. Pain: Denies pain. Neuro: Level of Consciousness is awake, alert, obeys commands, Oriented to person, place, time, situation, Appropriate for age. Respiratory: Airway is patent Respiratory effort is even, unlabored, Respiratory pattern is regular, symmetrical. GI: Reports diarrhea, nausea, vomiting. Derm: Skin is intact, is healthy with good turgor, Skin is pink, warm \\T\\ dry. normal. 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 - Social history:: Smoking status: Patient/guardian denies using tobacco. - Ebola Screening: : Patient negative for fever greater than or equal to 101.5 degrees Fahrenheit, and additional compatible Ebola Virus Disease symptoms Patient denies exposure to infectious person Patient denies travel to an Ebola-affected area in the 21 days before illness onset No symptoms or risks identified at this time. Screenin:34 Abuse screen: Denies threats or abuse. Nutritional screening: No deficits noted. tw2 Tuberculosis screening: No symptoms or risk factors identified. Fall Risk None identified. Assessment: 18:34 General: Appears in no apparent distress. Behavior is calm, cooperative, appropriate tw2 for age. Neuro: Level of Consciousness is awake, alert, obeys commands, Oriented to person, place, time, situation. Cardiovascular: Heart tones S1 S2 Patient's skin is warm and dry. Respiratory: Airway is patent Respiratory effort is even, unlabored, Respiratory pattern is regular, symmetrical, Breath sounds are clear bilaterally. GI: Abdomen is flat, Bowel sounds present X 4 quads. Reports diarrhea, nausea, vomiting. : Urine is cloudy. EENT: No signs and/or symptoms were reported regarding the EENT system. Derm: No signs and/or symptoms reported regarding the dermatologic system. Musculoskeletal: No signs and/or symptoms reported regarding the musculoskeletal system. Range of motion: intact in all extremities. 19:17 Reassessment: Patient appears in no apparent distress at this time. Patient and/or cc3 family updated on plan of care and expected duration. Pain level reassessed. Patient is alert, oriented x 3, equal unlabored respirations, skin warm/dry/pink. Received this female patient from morning shift RN Mya as a case of vomiting/diarrhea. With IV cannula gauge 20 at the right ACV saline locked. 20:30 Reassessment: Patient appears in no apparent distress at this time. Patient and/or cc3 family updated on plan of care and expected duration. Pain level reassessed. Patient is alert, oriented x 3, equal unlabored respirations, skin warm/dry/pink. 21:15 Reassessment: Patient appears in no apparent distress at this time. Patient and/or cc3 family updated on plan of care and expected duration. Pain level reassessed. Patient is alert, oriented x 3, equal unlabored respirations, skin warm/dry/pink. AZEEM Moran discharged the patient home with prescription given. IV cannula removed and patient left ER vitally stable and ambulatory. Vital Signs: 18:26 BP 115 / 72; Pulse 94; Resp 18; Temp 97.5; Pulse Ox 99% on R/A; Weight 84.37 kg; Height aj 5 ft. 3 in. (160.02 cm); 18:48 BP 114 / 84 Sitting; Pulse 82; gm 18:49 BP 113 / 87 Standing; Pulse 98; gm 18:53 BP 111 / 78 Supine; Pulse 82; gm 19:16 BP 106 / 77; Pulse 88; Resp 18 S; Temp 98.9(O); Pulse Ox 100% on R/A; cc3 20:55 BP 109 / 73; Pulse 86; Resp 17 S; Pulse Ox 100% on R/A; cc3 18:26 Body Mass Index 32.95 (84.37 kg, 160.02 cm) aj ED Course: 17:43 Patient arrived in ED. mr 17:44 None, None is Private Physician. mr 18:07 Triage completed. aj 18:26 Arm band placed on left wrist. Patient placed in waiting room, Patient notified of wait aj time. 18:33 Mya Pickard RN is Primary Nurse. tw2 18:33 Bed in low position. Call light in reach. Pulse ox on. NIBP on. tw2 18:35 Luisa Land FNP-C is PHCP. snw 18:35 Amol Oh MD is Attending Physician. snw 18:38 Inserted saline lock: 22 gauge in right antecubital area, using aseptic technique. tw2 Blood collected. 18:59 Report given to CAMACHO Omer. tw2 20:00 Inserted saline lock: 20 gauge in left antecubital area, using aseptic technique. cc3 21:15 No provider procedures requiring assistance completed. IV discontinued, intact, cc3 bleeding controlled, No redness/swelling at site. Pressure dressing applied. Administered Medications: 20:00 Drug: NS 0.9% 1000 ml Route: IV; Rate: 1 bolus; Site: left antecubital; cc3 21:05 Follow up: Response: No adverse reaction; IV Status: Completed infusion; IV Intake: cc3 1000ml 20:02 Drug: Zofran 4 mg Route: IVP; Site: left antecubital; cc3 20:30 Follow up: Response: No adverse reaction; Nausea is decreased cc3 Intake: 21:05 IV: 1000ml; Total: 1000ml. cc3 Outcome: 20:14 Discharge ordered by . snw 21:15 Discharged to home ambulatory. cc3 21:15 Condition: stable 21:15 Discharge instructions given to patient, Instructed on discharge instructions, follow up and referral plans. medication usage, Demonstrated understanding of instructions, follow-up care, medications, Prescriptions given X 1. 21:25 Patient left the ED. cc3 Signatures: Kamryn Mascorro RN RN Luisa Tate, C 13 CATAPULT OPERATOR-C C 13 CATAPULT OPERATOR-Csnw Mckenzie ParkMya, RN RN tw2 Negra Darnell cc3 Tonya Ramsay gm Corrections: (The following items were deleted from the chart) 18: 18:06 Presenting complaint: Patient states: SOB for 4 days. Patient was unable to get aj an appointment with clutch specialist today. 18:06 Transition of care: patient was not received from another setting of care. [facility] 18:06 Onset of symptoms was August 11, 2018 [facility] 18:06 Risk Assessment: Do you want to hurt yourself or someone else? Patient reports no aj desire to harm self or others. 18:06 Initial Sepsis Screen: Does the patient meet any 2 criteria? No. Patient's aj initial sepsis screen is negative. Does the patient have a suspected source of infection? No. Patient's initial sepsis screen is negative. 18:06 Care prior to arrival: None. [facility] 18:06 Method Of Arrival: Ambulatory [facility] 18:06 Acuity: PRATEEK 3 [facility]
--- NOTE | 2018-08-15 20:15 | EDPHYS ---
Physician Documentation [facility] Name: Clara Ruth Age: 23 yrs Sex: Female : 1995 Arrival Date: 08/15/2018 Time: 17:43 Bed 15 Private MD: None, None ED Physician Amol Oh HPI: 08/15 19:50 This 23 yrs old Female presents to ER via Ambulatory with complaints of snw Vomiting/Diarrhea. 19:50 The patient presents to the emergency department with nausea, vomiting, diarrhea. snw Onset: The symptoms/episode began/occurred suddenly, yesterday. Possible causes: unknown. The symptoms are aggravated by nothing. Associated signs and symptoms: Pertinent positives: anorexia, diarrhea, nausea, vomiting. Severity of symptoms: At their worst the symptoms were moderate. The patient has not experienced similar symptoms in the past. The patient has not recently seen a physician. 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 - Social history:: Smoking status: Patient/guardian denies using tobacco. - Ebola Screening: : Patient negative for fever greater than or equal to 101.5 degrees Fahrenheit, and additional compatible Ebola Virus Disease symptoms Patient denies exposure to infectious person Patient denies travel to an Ebola-affected area in the 21 days before illness onset No symptoms or risks identified at this time. ROS: 19:50 Constitutional: Negative for fever, chills, and weight loss, Eyes: Negative for injury, snw pain, redness, and discharge, ENT: Negative for injury, pain, and discharge, Neck: Negative for injury, pain, and swelling, Cardiovascular: Negative for chest pain, palpitations, and edema, Respiratory: Negative for shortness of breath, cough, wheezing, and pleuritic chest pain, Back: Negative for injury and pain, : Negative for injury, bleeding, discharge, and swelling, MS/Extremity: Negative for injury and deformity, Skin: Negative for injury, rash, and discoloration, Neuro: Negative for headache, weakness, numbness, tingling, and seizure. 19:50 Abdomen/GI: Positive for nausea, vomiting, and diarrhea. Exam: 19:49 Constitutional: This is a well developed, well nourished patient who is awake, alert, snw and in no acute distress. Head/Face: Normocephalic, atraumatic. Eyes: Pupils equal round and reactive to light, extra-ocular motions intact. Lids and lashes normal. Conjunctiva and sclera are non-icteric and not injected. Cornea within normal limits. Periorbital areas with no swelling, redness, or edema. ENT: Nares patent. No nasal discharge, no septal abnormalities noted. Tympanic membranes are normal and external auditory canals are clear. Oropharynx with no redness, swelling, or masses, exudates, or evidence of obstruction, uvula midline. Mucous membranes moist. Neck: Trachea midline, no thyromegaly or masses palpated, and no cervical lymphadenopathy. Supple, full range of motion without nuchal rigidity, or vertebral point tenderness. No Meningismus. Chest/axilla: Normal chest wall appearance and motion. Nontender with no deformity. No lesions are appreciated. Cardiovascular: Regular rate and rhythm with a normal S1 and S2. No gallops, murmurs, or rubs. Normal PMI, no JVD. No pulse deficits. Respiratory: Lungs have equal breath sounds bilaterally, clear to auscultation and percussion. No rales, rhonchi or wheezes noted. No increased work of breathing, no retractions or nasal flaring. Abdomen/GI: Soft, non-tender, with normal bowel sounds. No distension or tympany. No guarding or rebound. No evidence of tenderness throughout. Back: No spinal tenderness. No costovertebral tenderness. Full range of motion. Skin: Warm, dry with normal turgor. Normal color with no rashes, no lesions, and no evidence of cellulitis. MS/ Extremity: Pulses equal, no cyanosis. Neurovascular intact. Full, normal range of motion. Neuro: Awake and alert, GCS 15, oriented to person, place, time, and situation. Cranial nerves II-XII grossly intact. Motor strength 5/5 in all extremities. Sensory grossly intact. Cerebellar exam normal. Normal gait. Vital Signs: 18:26 BP 115 / 72; Pulse 94; Resp 18; Temp 97.5; Pulse Ox 99% on R/A; Weight 84.37 kg; Height aj 5 ft. 3 in. (160.02 cm); 18:48 BP 114 / 84 Sitting; Pulse 82; gm 18:49 BP 113 / 87 Standing; Pulse 98; gm 18:53 BP 111 / 78 Supine; Pulse 82; gm 19:16 BP 106 / 77; Pulse 88; Resp 18 S; Temp 98.9(O); Pulse Ox 100% on R/A; cc3 20:55 BP 109 / 73; Pulse 86; Resp 17 S; Pulse Ox 100% on R/A; cc3 18:26 Body Mass Index 32.95 (84.37 kg, 160.02 cm) aj MDM: 18:36 Patient medically screened. snw 20:14 Data reviewed: vital signs, nurses notes. Data interpreted: Pulse oximetry: on room air snw is 100 %. Interpretation: normal. Counseling: I had a detailed discussion with the patient and/or guardian regarding: the historical points, exam findings, and any diagnostic results supporting the discharge/admit diagnosis, the need for outpatient follow up, to return to the emergency department if symptoms worsen or persist or if there are any questions or concerns that arise at home. Special discussion: Based on the patient's Hx, exam, and Dx evaluation, there is no indication for emergent surgery or inpatient Tx. It is understood by the patient/guardian that if the Sx's persist or worsen they need to return immediately for re-evaluation. Based on the history and exam findings, there is no indication for further emergent testing or inpatient evaluation. I discussed with the patient/guardian the need to see the primary care provider for further evaluation of the symptoms. 08/15 18:36 Order name: Urine Microscopic Only; Complete Time: 20:34 snw 08/15 19:07 Order name: Urine Dipstick--Ancillary (enter results); Complete Time: 19:24 ms 08/15 18:36 Order name: Orthostatics; Complete Time: 18:56 snw 08/15 18:36 Order name: Urine Test (obtain specimen); Complete Time: 18:56 snw 08/15 18:36 Order name: Urine Dipstick-Ancillary (obtain specimen); Complete Time: 18:56 snw Administered Medications: 20:00 Drug: NS 0.9% 1000 ml Route: IV; Rate: 1 bolus; Site: left antecubital; cc3 21:05 Follow up: Response: No adverse reaction; IV Status: Completed infusion; IV Intake: cc3 1000ml 20:02 Drug: Zofran 4 mg Route: IVP; Site: left antecubital; cc3 20:30 Follow up: Response: No adverse reaction; Nausea is decreased cc3 Disposition: 08/16 07:26 Co-signature as Attending Physician, Amol Oh MD I agree with the assessment and kdr plan of care. Disposition: 08/15/18 20:14 Discharged to Home. Impression: Vomiting, unspecified, Diarrhea, unspecified, Dehydration. - Condition is Stable. - Discharge Instructions: Food Choices to Help Relieve Diarrhea, Adult, Viral Gastroenteritis, Adult, Rehydration, Adult. - Prescriptions for promethazine 25 mg Oral Tablet - take 1 tablet by ORAL route every 6 hours As needed; 20 tablet. - Medication Reconciliation Form, Thank You Letter, Antibiotic Education, Prescription Opioid Use, Work release form form. - Follow up: Private Physician; When: 2 - 3 days; Reason: Recheck today's complaints, Continuance of care, Re-evaluation by your physician. Follow up: Emergency Department; When: As needed; Reason: Worsening of condition. Signatures: Dispatcher [employer] EDKamryn Ellis RN RN aj Rittger, Kevin, MD MD kdr Therrien, Shelly, BUSINESS UNIT LEADER-C BUSINESS UNIT LEADER-Csnw Negra Darnell cc3 Corrections: (The following items were deleted from the chart) 08/15 21:25 20:14 08/15/2018 20:14 Discharged to Home. Impression: Vomiting, unspecified; Diarrhea, cc3 unspecified; Dehydration. Condition is Stable. Discharge Instructions: Food Choices to Help Relieve Diarrhea, Adult, Viral Gastroenteritis, Adult, Rehydration, Adult. Prescriptions for promethazine 25 mg Oral Tablet - take 1 tablet by ORAL route every 6 hours As needed; 20 tablet. and Forms are Work release form, Medication Reconciliation Form, Thank You Letter, Antibiotic Education, Prescription Opioid Use. Follow up: Private Physician; When: 2 - 3 days; Reason: Recheck today's complaints, Continuance of care, Re-evaluation by your physician. Follow up: Emergency Department; When: As needed; Reason: Worsening of condition. snw
[2018-08-15 20:31] LABS: Urine Bacteria <20 /HPF (<20); Urine Culture Reflex Order NOT NEEDED; Urine RBC <5 /HPF (NONE SEEN)
[2018-08-15 20:32] LABS: Urine Mucus MOD /HPF (NONE SEEN)
[2018-08-15 22:02] VITALS: BP 106/77; TEMP 98.9; O2SAT 100
== END 2018-08-15 21:25 | disposition home or self-care (01) ==
LOC: ER 17:39
DX: E86.0 Dehydration (principal); R19.7 Diarrhea, unspecified; Z88.6 Allergy status to analgesic agent
CPT/HCPCS: 81003; 81015; 96361; 96374; 99284; J2405; J7030

== ENCOUNTER 2018-11-30 16:22 | Emergency (ER) | payer SELFPAY ==
--- OUTSIDE RECORDS SUMMARY | 2018-11-30 16:25 | XMS REPORT ---
:1995 Author Organization [facility] Address [address] [place] [address] [address] [place] [address] Care Team Providers Name Role Phone Unavailable Unavailable Unavailable Problems This patient has no known problems. Allergies, Adverse Reactions, Alerts This patient has no known allergies or adverse reactions. Medications This patient has no known medications.
--- OUTSIDE RECORDS SUMMARY | 2018-11-30 16:25 | XMS REPORT | Clinical Summary ---
:1995 Author Organization [facility] Address [address] [place] [id number] Care Team Providers Name Role Phone Simona [...] Not on file Results Not on fileafter 11/29/2017 Insurance Payer Benefit Plan / Subscriber ID Type Phone Address Group MEDICAID - MEDICAID MEDICAID COMM xxxxxxxxx Medicaid Contracted [facility] CHOICE
--- NOTE | 2018-11-30 18:10 | EDPHYS ---
Physician Documentation [facility] Name: Clara Ruth Age: 23 yrs Sex: Female : 1995 Arrival Date: 11/30/2018 Time: 16:24 Bed 15 Private MD: None, None ED Physician Salvador Guzman HPI: 11/30 18:07 This 23 yrs old Female presents to ER via Ambulatory with complaints of Work rn note, Vomiting/Diarrhea. 18:07 The patient presents to the emergency department with nausea, vomiting, diarrhea. rn Onset: The symptoms/episode began/occurred yesterday. Possible causes: sick contacts. The symptoms are aggravated by nothing. The symptoms are alleviated by nothing. Severity of symptoms: At their worst the symptoms were mild in the emergency department the symptoms have improved. The patient has experienced similar episodes in the past. Reports family members with similar symptoms of vomiting/diarrhea, reports missed work yesterday, symptoms now improved, but needs work note. Does not have abd pain, reports drinking sprite, and declines medication.. 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 tw2 Historical: - Allergies: 17:05 Aleve; aa5 - PMHx: 17:05 None; aa5 - PSHx: 17:05 Cholecystectomy; aa5 - Immunization history:: Flu vaccine is not up to date. - Social history:: Smoking status: Patient/guardian denies using tobacco. - Ebola Screening: : No symptoms or risks identified at this time. - Family history:: not pertinent. - Hospitalizations: : No recent hospitalization is reported. ROS: 18:07 Constitutional: Negative for fever, chills, and weight loss, Cardiovascular: Negative rn for chest pain, palpitations, and edema, Respiratory: Negative for shortness of breath, cough, wheezing, and pleuritic chest pain, Abdomen/GI: Negative for constipation Neuro: Negative for headache, weakness, numbness, tingling, and seizure. Exam: 18:07 Constitutional: This is a well developed, well nourished patient who is awake, alert, rn and in no acute distress. ENT: MMM Abdomen/GI: soft, non-tender Skin: Warm, dry Vital Signs: 17:06 BP 121 / 76; Pulse 101; Resp 16 S; Temp 98.7(TE); Pulse Ox 99% on R/A; Weight 86.18 kg aa5 (R); Height 5 ft. 3 in. (160.02 cm) (R); Pain 0/10; 18:08 BP 113 / 77; Pulse 88; Resp 17; Pulse Ox 99% on R/A; Pain 0/10; tw2 17:06 Body Mass Index 33.66 (86.18 kg, 160.02 cm) aa5 MDM: 18:05 Patient medically screened. rn 18:07 Differential diagnosis: viral gastroenteritis, gastroenteritis. Data reviewed: vital rn signs, nurses notes, and as a result, I will discharge patient. Counseling: I had a detailed discussion with the patient and/or guardian regarding: the historical points, exam findings, and any diagnostic results supporting the discharge/admit diagnosis, the need for outpatient follow up, to return to the emergency department if symptoms worsen or persist or if there are any questions or concerns that arise at home. Special discussion: I discussed with the patient/guardian in detail that at this point there is no indication for admission to the hospital. It is understood, however, that if the symptoms persist or worsen the patient needs to return immediately for re-evaluation. Administered Medications: No medications were administered Disposition: 11/30/18 18:10 Discharged to Home. Impression: Vomiting, Diarrhea, unspecified. - Condition is Stable. - Discharge Instructions: Diarrhea, Adult, Nausea and Vomiting, Adult. - Medication Reconciliation Form, Thank You Letter, Antibiotic Education, Prescription Opioid Use, Work release form form. - Follow up: Private Physician; When: As needed; Reason: Recheck today's complaints, Re-evaluation by your physician. - Problem is new. - Symptoms have improved. Signatures: Salvador Guzman MD MD rn Calderon, Audri RN RN aa5 Mya Pickard RN RN tw2 Corrections: (The following items were deleted from the chart) 18:13 18:10 11/30/2018 18:10 Discharged to Home. Impression: Vomiting; Diarrhea, unspecified. tw2 Condition is Stable. Forms are Work release form, Medication Reconciliation Form, Thank You Letter, Antibiotic Education, Prescription Opioid Use. Follow up: Private Physician; When: As needed; Reason: Recheck today's complaints, Re-evaluation by your physician. Problem is new. Symptoms have improved. rn
--- NOTE | 2018-11-30 18:10 | ER ---
Nurse's Notes [facility] Name: Clara Ruth Age: 23 yrs Sex: Female : 1995 Arrival Date: 11/30/2018 Time: 16:24 Bed 15 Private MD: None, None Diagnosis: Vomiting;Diarrhea, unspecified Presentation: 11/30 17:04 Presenting complaint: Patient states: "I have a headache, vomiting, and diarrhea so I aa5 called in to work so I just need a work excuse". Pt states "I just feel better and I haven't vomited in the last several hours". Transition of care: patient was not received from another setting of care. Onset of symptoms was November 30, 2018. Risk Assessment: Do you want to hurt yourself or someone else? Patient reports no desire to harm self or others. Initial Sepsis Screen: Does the patient meet any 2 criteria? No. Patient's initial sepsis screen is negative. Does the patient have a suspected source of infection? No. Patient's initial sepsis screen is negative. Care prior to arrival: None. 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 tw2 Historical: - Allergies: 17:05 Aleve; aa5 - PMHx: 17:05 None; aa5 - PSHx: 17:05 Cholecystectomy; aa5 - Immunization history:: Flu vaccine is not up to date. - Social history:: Smoking status: Patient/guardian denies using tobacco. - Ebola Screening: : No symptoms or risks identified at this time. - Family history:: not pertinent. - Hospitalizations: : No recent hospitalization is reported. Screenin:47 Abuse screen: Denies threats or abuse. Nutritional screening: No deficits noted. tw2 Tuberculosis screening: No symptoms or risk factors identified. Fall Risk None identified. Assessment: 17:47 General: Appears in no apparent distress. Behavior is calm, cooperative, appropriate tw2 for age. Pain: Denies pain. Neuro: Level of Consciousness is awake, alert, obeys commands, Oriented to person, place. Cardiovascular: Patient's skin is warm and dry. Respiratory: Airway is patent Respiratory effort is even, unlabored, Respiratory pattern is regular, symmetrical. GI: Abdomen is non-distended, Reports nausea, vomiting. Musculoskeletal: No signs and/or symptoms reported regarding the musculoskeletal system. 18:08 Reassessment: "i just need a work note since i didn't go to work, everybody around me tw2 has had the stomach bug", provider at beside at this time. Vital Signs: 17:06 BP 121 / 76; Pulse 101; Resp 16 S; Temp 98.7(TE); Pulse Ox 99% on R/A; Weight 86.18 kg aa5 (R); Height 5 ft. 3 in. (160.02 cm) (R); Pain 0/10; 18:08 BP 113 / 77; Pulse 88; Resp 17; Pulse Ox 99% on R/A; Pain 0/10; tw2 17:06 Body Mass Index 33.66 (86.18 kg, 160.02 cm) aa5 ED Course: 16:24 Patient arrived in ED. mr 16:25 None, None is Private Physician. mr 17:04 Arm band placed on. aa5 17:05 Triage completed. aa5 17:46 Mya Pickard, RN is Primary Nurse. tw2 17:47 Bed in low position. Call light in reach. tw2 18:05 Salvador Guzman MD is Attending Physician. rn 18:13 No provider procedures requiring assistance completed. Patient did not have IV access tw2 during this emergency room visit. Administered Medications: No medications were administered Outcome: 18:10 Discharge ordered by . rn 18:13 Discharged to home ambulatory. tw2 18:13 Condition: stable 18:13 Discharge instructions given to patient, Instructed on discharge instructions, follow up and referral plans. Demonstrated understanding of instructions, follow-up care. 18:13 Patient left the ED. tw2 Signatures: [place] Salvador Guzman MD MD rn Calderon, Audri, RN RN aa5 Mya Pickard RN RN tw2
[2018-11-30 18:21] VITALS: TEMP 98.7; O2SAT 99
[2018-11-30 18:23] VITALS: BP 113/77
== END 2018-11-30 18:13 | disposition home or self-care (01) ==
LOC: ER 16:22
DX: R11.2 Nausea with vomiting, unspecified (principal); R19.7 Diarrhea, unspecified
CPT/HCPCS: 99281

== ENCOUNTER 2019-02-23 15:46 | Emergency (ER) | payer SELFPAY ==
--- OUTSIDE RECORDS SUMMARY | 2019-02-23 15:48 | XMS REPORT | Clinical Summary ---
:1995 Author Organization [facility] Address [address] [place] [id number] Care Team Providers Name Role Phone Simona [...] Not on file Results Not on fileafter 02/22/2018 Insurance Payer Benefit Plan / Subscriber ID Type Phone Address Group MEDICAID - MEDICAID MEDICAID COMM xxxxxxxxx Medicaid Contracted [facility] HEALTH CHOICE
--- OUTSIDE RECORDS SUMMARY | 2019-02-23 15:49 | XMS REPORT ---
:1995 Author Organization [facility] Address [address] [place] [address] [address] [place] [address] Care Team Providers Name Role Phone Unavailable Unavailable Unavailable Problems This patient has no known problems. Allergies, Adverse Reactions, Alerts This patient has no known allergies or adverse reactions. Medications This patient has no known medications.
--- NOTE | 2019-02-23 18:38 | EDPHYS ---
Physician Documentation [facility] Name: Clara Ruth Age: 23 yrs Sex: Female : 1995 Arrival Date: 02/23/2019 Time: 15:49 Bed 11 Private MD: None, None ED Physician Salvador Guzman HPI: 02/23 20:36 This 23 yrs old Female presents to ER via Ambulatory with complaints of snw Vomiting, NEEDS WORK NOTE. 20:36 The patient presents to the emergency department with vomiting, x 1 at work. pt states snw she just wants a work excuse. Onset: The symptoms/episode began/occurred suddenly. Possible causes: unknown. Associated signs and symptoms: The patient has no apparent associated signs or symptoms. Severity of symptoms: At their worst the symptoms were very mild. The patient has not experienced similar symptoms in the past. It is unknown whether or not the patient has recently seen a physician. 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 - Social history:: Smoking status: Patient/guardian denies using tobacco. - Ebola Screening: : No symptoms or risks identified at this time. ROS: 20:35 Constitutional: Negative for fever, chills, and weight loss, Eyes: Negative for injury, snw pain, redness, and discharge, ENT: Negative for injury, pain, and discharge, Neck: Negative for injury, pain, and swelling, Cardiovascular: Negative for chest pain, palpitations, and edema, Respiratory: Negative for shortness of breath, cough, wheezing, and pleuritic chest pain, Back: Negative for injury and pain, : Negative for injury, bleeding, discharge, and swelling, MS/Extremity: Negative for injury and deformity, Skin: Negative for injury, rash, and discoloration, Neuro: Negative for headache, weakness, numbness, tingling, and seizure. 20:35 Abdomen/GI: Positive for vomited x 1. Exam: 20:35 Constitutional: This is a well developed, well nourished patient who is awake, alert, snw and in no acute distress. Head/Face: Normocephalic, atraumatic. Eyes: Pupils equal round and reactive to light, extra-ocular motions intact. Lids and lashes normal. Conjunctiva and sclera are non-icteric and not injected. Cornea within normal limits. Periorbital areas with no swelling, redness, or edema. ENT: Nares patent. No nasal discharge, no septal abnormalities noted. Tympanic membranes are normal and external auditory canals are clear. Oropharynx with no redness, swelling, or masses, exudates, or evidence of obstruction, uvula midline. Mucous membranes moist. Neck: Trachea midline, no thyromegaly or masses palpated, and no cervical lymphadenopathy. Supple, full range of motion without nuchal rigidity, or vertebral point tenderness. No Meningismus. Chest/axilla: Normal chest wall appearance and motion. Nontender with no deformity. No lesions are appreciated. Cardiovascular: Regular rate and rhythm with a normal S1 and S2. No gallops, murmurs, or rubs. Normal PMI, no JVD. No pulse deficits. Respiratory: Lungs have equal breath sounds bilaterally, clear to auscultation and percussion. No rales, rhonchi or wheezes noted. No increased work of breathing, no retractions or nasal flaring. Abdomen/GI: Soft, non-tender, with normal bowel sounds. No distension or tympany. No guarding or rebound. No evidence of tenderness throughout. Back: No spinal tenderness. No costovertebral tenderness. Full range of motion. Skin: Warm, dry with normal turgor. Normal color with no rashes, no lesions, and no evidence of cellulitis. MS/ Extremity: Pulses equal, no cyanosis. Neurovascular intact. Full, normal range of motion. Neuro: Awake and alert, GCS 15, oriented to person, place, time, and situation. Cranial nerves II-XII grossly intact. Motor strength 5/5 in all extremities. Sensory grossly intact. Cerebellar exam normal. Normal gait. Psych: Awake, alert, with orientation to person, place and time. Behavior, mood, and affect are within normal limits. Vital Signs: 15:58 BP 130 / 73; Pulse 87; Resp 16; Temp 98.1; Pulse Ox 100% on R/A; Weight 79.38 kg; hb Height 5 ft. 3 in. (160.02 cm); Pain 4/10; 15:58 Body Mass Index 31.00 (79.38 kg, 160.02 cm) hb MDM: 18:15 Patient medically screened. snw 20:35 Data reviewed: vital signs, nurses notes. Data interpreted: Pulse oximetry: on room air snw is 100 %. Interpretation: normal. Counseling: I had a detailed discussion with the patient and/or guardian regarding: the historical points, exam findings, and any diagnostic results supporting the discharge/admit diagnosis, the need for outpatient follow up, to return to the emergency department if symptoms worsen or persist or if there are any questions or concerns that arise at home. Special discussion: Based on the patient's Hx, exam, and Dx evaluation, there is no indication for emergent surgery or inpatient Tx. It is understood by the patient/guardian that if the Sx's persist or worsen they need to return immediately for re-evaluation. Based on the history and exam findings, there is no indication for further emergent testing or inpatient evaluation. I discussed with the patient/guardian the need to see the primary care provider for further evaluation of the symptoms. Administered Medications: No medications were administered Disposition: 02/23/19 18:37 Discharged to Home. Impression: Vomiting, unspecified. - Condition is Stable. - Discharge Instructions: Clear Liquid Diet, Adult, Nausea and Vomiting, Adult, Hand Washing, Rehydration, Adult. - Work release form, Medication Reconciliation Form, Thank You Letter, Antibiotic Education, Prescription Opioid Use form. - Follow up: Private Physician; When: As needed; Reason: Worsening of condition. Addendum: 02/25/2019 19:02 Co-signature as Attending Physician, Salvador Guzman MD. r n Signatures: Luisa Land, RESERVATIONIST-C RESERVATIONIST-Csnw Salvador Guzman MD MD rn Baxter, Heather, RN RN hb Corrections: (The following items were deleted from the chart) 02/23 18:48 18:37 02/23/2019 18:37 Discharged to Home. Impression: Vomiting, unspecified. Condition hb is Stable. Forms are Medication Reconciliation Form, Thank You Letter, Antibiotic Education, Prescription Opioid Use. Follow up: Private Physician; When: As needed; Reason: Worsening of condition. snw
--- NOTE | 2019-02-23 18:38 | ER ---
Nurse's Notes [facility] Name: Clara Ruth Age: 23 yrs Sex: Female : 1995 Arrival Date: 02/23/2019 Time: 15:49 Bed 11 Private MD: None, None Diagnosis: Vomiting, unspecified Presentation: 02/23 15:56 Presenting complaint: Patient states: "I threw up at work twice but I feel mostly hb better now, my work won't let me come back unless I get a note." Tolerating fluids. Transition of care: patient was not received from another setting of care. Onset of symptoms was February 23, 2019. Risk Assessment: Do you want to hurt yourself or someone else? Patient reports no desire to harm self or others. Initial Sepsis Screen: Does the patient meet any 2 criteria? No. Patient's initial sepsis screen is negative. Does the patient have a suspected source of infection? No. Patient's initial sepsis screen is negative. Care prior to arrival: None. 15:56 Method Of Arrival: Ambulatory hb 15:56 Acuity: PRATEEK 4 hb Triage Assessment: 16:00 General: Appears in no apparent distress. Behavior is calm, cooperative. Pain: Denies hb pain. Neuro: Level of Consciousness is awake, alert, obeys commands, Oriented to person, place, time, situation. Cardiovascular: Capillary refill < 3 seconds Patient's skin is warm and dry. Respiratory: Airway is patent Respiratory effort is even, unlabored, Respiratory pattern is regular, symmetrical. GI: Reports nausea. 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 - Social history:: Smoking status: Patient/guardian denies using tobacco. - Ebola Screening: : No symptoms or risks identified at this time. Screenin:15 Abuse screen: Denies threats or abuse. Denies injuries from another. Nutritional hb screening: No deficits noted. Tuberculosis screening: No symptoms or risk factors identified. Fall Risk None identified. Assessment: 17:55 General: see triage assessment. hb 18:05 Reassessment: Patient appears in no apparent distress at this time. Patient and/or hb family updated on plan of care and expected duration. Pain level reassessed. Patient is alert, oriented x 3, equal unlabored respirations, skin warm/dry/pink. Patient denies pain at this time. Patient states feeling better. Patient states symptoms have improved. Vital Signs: 15:58 BP 130 / 73; Pulse 87; Resp 16; Temp 98.1; Pulse Ox 100% on R/A; Weight 79.38 kg; hb Height 5 ft. 3 in. (160.02 cm); Pain 4/10; 15:58 Body Mass Index 31.00 (79.38 kg, 160.02 cm) hb ED Course: 15:49 Patient arrived in ED. mr 15:50 None, None is Private Physician. mr 15:58 Triage completed. hb 15:58 Arm band placed on. hb 18:15 Luisa Land F[facility]-C [facility]. snw 18:15 Salvador Guzman MD is Attending Physician. snw 18:15 Patient has correct armband on for positive identification. Call light in reach. hb 18:48 No provider procedures requiring assistance completed. Patient did not have IV access hb during this emergency room visit. Administered Medications: No medications were administered Outcome: 18:37 Discharge ordered by . snw 18:48 Discharged to home ambulatory. hb 18:48 Condition: stable 18:48 Discharge instructions given to patient, Instructed on discharge instructions, follow up and referral plans. Demonstrated understanding of instructions, follow-up care. 18:48 Patient left the ED. hb Signatures: Luisa Land FNP-C FNP-Mckenzie Lee Alivia Pereira, RN RN hb Corrections: (The following items were deleted from the chart) 15:58 15:56 Presenting complaint: Patient states: "I threw up at work twice but I feel mostly hb better now, my work won't let me come back unless I get a note." Denies pain/fever. Tolerating gluids. hb
[2019-02-23 19:15] VITALS: BP 130/73; TEMP 98.1; O2SAT 100
== END 2019-02-23 18:48 | disposition home or self-care (01) ==
LOC: ER 15:46
DX: R11.10 Vomiting, unspecified (principal); Z88.6 Allergy status to analgesic agent
CPT/HCPCS: 99281

== ENCOUNTER 2019-04-03 06:17 | Emergency (ER) | payer OTHER, SELFPAY ==
--- OUTSIDE RECORDS SUMMARY | 2019-04-03 06:20 | XMS REPORT | Clinical Summary ---
:1995 Author Organization [facility] Address [address] [place] [id number] Care Team Providers Name Role Phone Simona [...] Not on file Results Not on fileafter 04/02/2018 Insurance Payer Benefit Plan / Subscriber ID Type Phone Address Group MEDICAID - MEDICAID MEDICAID COMM xxxxxxxxx Medicaid Contracted [facility] HEALTH CHOICE
--- OUTSIDE RECORDS SUMMARY | 2019-04-03 06:20 | XMS REPORT ---
:1995 [facility] Address [address] [place] [address] [address] [place] [address] Care Team Providers Name Role Phone Unavailable Unavailable Unavailable Problems This patient has no known problems. Allergies, Adverse Reactions, Alerts This patient has no known allergies or adverse reactions. Medications This patient has no known medications.
[2019-04-03 07:07] LABS: Absolute Lymphocytes (CBC) 1.4 K/uL (0.7-4.9); Basophils % 0.8 % (0-1.3); Eosinophils % 1.8 % (0-4.4); Hematocrit 42.1 % (36.0-45.0); Lymphocytes % 20.4 % (15.3-44.8); MPV 8.9 fL (7.6-11.3); Monocytes % 5.8 % (3.3-12.3); RBC Red Blood Cell Count 4.54 M/uL (3.86-4.86)
[2019-04-03 07:13] LABS: BUN Blood Urea Nitrogen 12 mg/dL (7-18); Bicarbonate 27 mmol/L (21-32); Glucose Level 89 mg/dL (74-106); Potassium 3.7 mmol/L (3.5-5.1); Sodium Level 139 mmol/L (136-145)
[2019-04-03 07:18] LABS: Urine Blood TRACE (NEG); Urine Glucose NEGATIVE (NEG); Urine Protein 1+ (NEG); Urine Specific Gravity 1.025 (1.005-1.030)
--- NOTE | 2019-04-03 08:41 | RAD REPORT ---
EXAM DESCRIPTION: US - Transvaginal OB - 04/03/2019 8:32 am CLINICAL HISTORY: VAGINAL BLEEDING COMPARISON: OBSTETRICAL COMPLETE dated 08/04/2010 FINDINGS: A single gestational sac is seen within the uterus. The shape of the sac is within normal limits for gestational age. Within the sac is a single pole with crown-rump length of 3 mm, cor relating to estimated gestational age of 5 weeks 6 days. Estimated date of delivery is 11/28/2019. Heart rate is 116 BPM. The placenta is not yet developed due to early gestational age. 9 x 7 mm subchorionic bleed seen infe rior to the gestational sac. The maternal adnexa and ovaries are within normal limits. Normal Doppler blood flow was demonstrated to both ovaries. IMPRESSION: Single live early intrauterine gestation with estimated gestational age of 5 weeks 6 day s, DESI 11/28/2019. 9 x 7 mm subchorionic bleed inferiorly located.
[2019-04-03 09:26] LABS: Urine RBC <5 /HPF (NONE SEEN)
[2019-04-03 09:27] LABS: Urine Amorphous Sediment 1+ /HPF (NONE SEEN); Urine Bacteria 20-50 /HPF (<20); Urine Mucus LIGHT /HPF (NONE SEEN)
[2019-04-03 09:28] LABS: Urine Culture Reflex Order NOT NEEDED
--- NOTE | 2019-04-03 09:40 | EDPHYS ---
Physician Documentation [facility] Name: Clara Ruth Age: 23 yrs Sex: Female : 1995 Arrival Date: 04/03/2019 Time: 06:19 Bed 2 Private MD: ED Physician Otf Sorto HPI: 04/03 07:26 This 23 yrs old Female presents to ER via Ambulatory with complaints of pm1 Vaginal Bleeding, + Preg <12wks. 07:26 The patient presents to the emergency department with vaginal bleeding, that is light, pm1 described as spotting. The estimated gestational age is 5 weeks. course: care: private OB physician. Previous pregnancies: in previous pregnancies patient has had no complications. Associated signs and symptoms: Pertinent negatives: abdominal pain, dysuria, fever, nausea, shortness of breath, vomiting. The patient has not experienced similar symptoms in the past. 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 - Social history:: Smoking status: Patient/guardian denies using tobacco. - Ebola Screening: : No symptoms or risks identified at this time. ROS: 07:26 Constitutional: Negative for fever, chills, and weight loss, Eyes: Negative for injury, pm1 pain, redness, and discharge, ENT: Negative for injury, pain, and discharge, Neck: Negative for injury, pain, and swelling, Cardiovascular: Negative for chest pain, palpitations, and edema, Respiratory: Negative for shortness of breath, cough, wheezing, and pleuritic chest pain, Abdomen/GI: Negative for abdominal pain, nausea, vomiting, diarrhea, and constipation, Back: Negative for injury and pain. 07:26 MS/Extremity: Negative for injury and deformity, Skin: Negative for injury, rash, and discoloration, Neuro: Negative for headache, weakness, numbness, tingling, and seizure. 07:26 : Positive for vaginal bleeding, Negative for burning with urination, vaginal discharge, vaginal itching. Exam: 07:26 Constitutional: This is a well developed, well nourished patient who is awake, alert, pm1 and in no acute distress. Head/Face: Normocephalic, atraumatic. Neck: Trachea midline, no thyromegaly or masses palpated, and no cervical lymphadenopathy. Supple, full range of motion without nuchal rigidity, or vertebral point tenderness. No Meningismus. Chest/axilla: Normal chest wall appearance and motion. Nontender with no deformity. No lesions are appreciated. Cardiovascular: Regular rate and rhythm with a normal S1 and S2. No gallops, murmurs, or rubs. Normal PMI, no JVD. No pulse deficits. Respiratory: Lungs have equal breath sounds bilaterally, clear to auscultation and percussion. No rales, rhonchi or wheezes noted. No increased work of breathing, no retractions or nasal flaring. Abdomen/GI: Soft, non-tender, with normal bowel sounds. No distension or tympany. No guarding or rebound. No evidence of tenderness throughout. Back: No spinal tenderness. No costovertebral tenderness. Full range of motion. Skin: Warm, dry with normal turgor. Normal color with no rashes, no lesions, and no evidence of cellulitis. MS/ Extremity: Pulses equal, no cyanosis. Neurovascular intact. Full, normal range of motion. 07:26 Neuro: Orientation: is normal, Motor: is normal, moves all fours. Vital Signs: 06:28 BP 132 / 78; Pulse 90; Resp 16; Temp 98.2; Pulse Ox 100% on R/A; Weight 84.82 kg; aa1 Height 5 ft. 3 in. (160.02 cm); Pain 7/10; 07:13 BP 108 / 74; Pulse 81; Resp 16 S; Temp 98.2(O); Pulse Ox 100% on R/A; Pain 0/10; aa5 09:00 BP 110 / 72; Pulse 80; Resp 18 S; Pulse Ox 99% on R/A; Pain 0/10; aa5 06:28 Body Mass Index 33.13 (84.82 kg, 160.02 cm) aa1 MDM: 06:35 Patient medically screened. pm1 09:38 Data reviewed: vital signs. Data interpreted: Pulse oximetry: on room air is 100 %. pm1 Interpretation: normal. Counseling: I had a detailed discussion with the patient and/or guardian regarding: the historical points, exam findings, and any diagnostic results supporting the discharge/admit diagnosis, lab results, radiology results, the need for outpatient follow up, an OB/Gyne specialist, to return to the emergency department if symptoms worsen or persist or if there are any questions or concerns that arise at home. 04/03 06:29 Order name: Abo/rh Typing 04/03 06:29 Order name: Basic Metabolic Panel; Complete Time: 07:39 04/03 06:29 Order name: CBC with Diff; Complete Time: 07:11 04/03 06:30 Order name: ABO/RH typing [facility] 04/03 06:34 Order name: Urine Microscopic Only; Complete Time: 09:37 pm1 04/03 06:46 Order name: Urine Dipstick--Ancillary (enter results); Complete Time: 07:39 04/03 06:35 Order name: US Transvaginal Ob; Complete Time: 08:42 pm1 04/03 06:46 Order name: Urine --Ancillary (enter results); Complete Time: 07:39 eb 04/03 08:20 Order name: Rhogam [facility] 04/03 09:39 Order name: ABO/RH no charge; Complete Time: 10:08 [facility] 04/03 06:29 Order name: IV Saline Lock; Complete Time: 06:49 04/03 06:29 Order name: Labs collected and sent; Complete Time: 06:49 04/03 06:29 Order name: NPO; Complete Time: 06:49 04/03 06:29 Order name: Urine Dipstick-Ancillary (obtain specimen); Complete Time: 06:49 04/03 06:34 Order name: Urine Test (obtain specimen); Complete Time: 06:49 pm1 Administered Medications: 09:54 Drug: Rocephin 1 grams Route: IV; Rate: calculated rate; Site: right antecubital; aa5 10:14 Follow up: Response: No adverse reaction aa5 10:14 Drug: RhoGAM (Human) 300 mcg Route: IM; Site: right deltoid; aa5 10:26 Follow up: Response: No adverse reaction aa5 10:27 Follow up: Response: No adverse reaction aa5 Point of Care Testing: Urine : 07:11 hCG Reading: Positive; ea Disposition: 04/03/19 09:39 Discharged to Home. Impression: Threatened , Urinary tract infection, site not specified. - Condition is Stable. - Discharge Instructions: Threatened Miscarriage, Urinary Tract Infection, Adult, Pelvic Rest. - Prescriptions for Macrobid 100 mg Oral Capsule - take 1 capsule by ORAL route every 12 hours for 10 days; 20 capsule. - Work release form, Medication Reconciliation Form, Thank You Letter, Antibiotic Education, Prescription Opioid Use form. - Follow up: Emergency Department; When: As needed; Reason: Worsening of condition. Follow up: Private Physician; When: 2 - 3 days; Reason: Recheck today's complaints, Continuance of care, Re-evaluation by your physician. - Problem is new. - Symptoms have improved. Signatures: Dispatcher [employer] EDMS Fiorella Spangler RN RN aa1 Tana Townsend RN RN aa5 Alan Rapp NP [employer] LIBRARY CLERK pm1 Karen Harding RN RN ea Corrections: (The following items were deleted from the chart) 08:21 08:20 Rh Typing ordered. EDMT EDMS 08:21 08:20 Antibody Screen ordered. EDMT EDMS 08:21 08:20 Fetalscreen ordered. EDMT EDMS 08:21 08:20 Cord Rh type ordered. [facility] EDMS 10:27 09:39 04/03/2019 09:39 Discharged to Home. Impression: Threatened ; Urinary aa5 tract infection, site not specified. Condition is Stable. Forms are Medication Reconciliation Form, Thank You Letter, Antibiotic Education, Prescription Opioid Use. Follow up: Emergency Department; When: As needed; Reason: Worsening of condition. Follow up: Private Physician; When: 2 - 3 days; Reason: Recheck today's complaints, Continuance of care, Re-evaluation by your physician. Problem is new. Symptoms have improved. pm1
--- NOTE | 2019-04-03 09:40 | ER ---
Nurse's Notes [facility] Name: Clara Ruth Age: 23 yrs Sex: Female : 1995 Arrival Date: 04/03/2019 Time: 06:19 Bed 2 Private MD: Diagnosis: Threatened ;Urinary tract infection, site not specified Presentation: 04/03 06:27 Presenting complaint: Patient states: she is 5 weeks and started having aa1 cramping yesterday and noticed a small amount of blood when estrada went to the bathroom this morning. Has been seen by OB for this but has not had an u/s yet. Transition of care: patient was not received from another setting of care. Onset of symptoms was April 02, 2019. Risk Assessment: Do you want to hurt yourself or someone else? Patient reports no desire to harm self or others. Initial Sepsis Screen: Does the patient meet any 2 criteria? No. Patient's initial sepsis screen is negative. Does the patient have a suspected source of infection? No. Patient's initial sepsis screen is negative. Care prior to arrival: None. 06:27 Method Of Arrival: Ambulatory aa1 06:27 Acuity: PRATEEK 3 aa1 Triage Assessment: 06:28 General: Appears in no apparent distress. comfortable, Behavior is calm, cooperative, aa1 appropriate for age. 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 - Social history:: Smoking status: Patient/guardian denies using tobacco. - Ebola Screening: : No symptoms or risks identified at this time. Screenin:33 Abuse screen: Denies threats or abuse. Nutritional screening: No deficits noted. ea Tuberculosis screening: No symptoms or risk factors identified. Fall Risk None identified. Assessment: 06:47 General: Appears in no apparent distress. Behavior is appropriate for age. Pain: ea Complains of pain in abdomen Quality of pain is described as crampy. Neuro: Level of Consciousness is awake, alert, obeys commands, Oriented to person, place, time, situation. Cardiovascular: Patient's skin is warm and dry. Respiratory: Airway is patent Respiratory effort is even, unlabored, Respiratory pattern is regular, symmetrical. GI: No signs and/or symptoms were reported involving the gastrointestinal system. : Reports vaginal bleeding that is spotty. Derm: Skin is pink, warm \\T\\ dry. 07:11 Obstetrical Assessment: Patient reports abdominal cramping. ea 07:13 Reassessment: Patient is alert, oriented x 3, equal unlabored respirations, skin aa5 warm/dry/pink. Patient denies pain at this time. Pt states "My stomach just feels uncomfortable (all 4 quadrants)". Pt states "I had some pink spotting when I wiped earlier today but just a little bit ago I went to the restroom and I didn't have any more spotting". Awaiting US results, pt notified of wait time. Lights dimmed for comfort, pt now resting with eyes closed. . 08:20 Reassessment: Patient is alert, oriented x 3, equal unlabored respirations, skin aa5 warm/dry/pink. Patient denies pain at this time. Awaiting rhogam from lab, pt notified of long wait time, pt verbalized understanding. . 09:54 Reassessment: Patient is alert, oriented x 3, equal unlabored respirations, skin aa5 warm/dry/pink. Patient denies pain at this time. Pt sitting up in bed using her cell phone. . 10:25 Reassessment: Patient is alert, oriented x 3, equal unlabored respirations, skin aa5 warm/dry/pink. Patient denies pain at this time. Vital Signs: 06:28 BP 132 / 78; Pulse 90; Resp 16; Temp 98.2; Pulse Ox 100% on R/A; Weight 84.82 kg; aa1 Height 5 ft. 3 in. (160.02 cm); Pain 7/10; 07:13 BP 108 / 74; Pulse 81; Resp 16 S; Temp 98.2(O); Pulse Ox 100% on R/A; Pain 0/10; aa5 09:00 BP 110 / 72; Pulse 80; Resp 18 S; Pulse Ox 99% on R/A; Pain 0/10; aa5 06:28 Body Mass Index 33.13 (84.82 kg, 160.02 cm) aa1 ED Course: 06:19 Patient arrived in ED. am2 06:27 Triage completed. aa1 06:28 Arm band placed on right wrist. aa1 06:33 Alan Rapp NP is PHCP. pm1 06:33 Patient has correct armband on for positive identification. Placed in gown. Bed in low ea position. Call light in reach. 06:34 Otf Sorto MD is Attending Physician. pm1 06:47 Inserted saline lock: 20 gauge in right antecubital area, using aseptic technique. ea Blood collected. 07:05 Report received from CAMACHO Jones. aa5 07:15 Tana Townsend RN is Primary Nurse. aa5 07:20 Ultrasound completed. aa4 07:21 US Transvaginal Ob In Process Unspecified. EDMS 10:25 No provider procedures requiring assistance completed. IV discontinued, intact, aa5 bleeding controlled, No redness/swelling at site. Pressure dressing applied. Administered Medications: 09:54 Drug: Rocephin 1 grams Route: IV; Rate: calculated rate; Site: right antecubital; aa5 10:14 Follow up: Response: No adverse reaction aa5 10:14 Drug: RhoGAM (Human) 300 mcg Route: IM; Site: right deltoid; aa5 10:26 Follow up: Response: No adverse reaction aa5 10:27 Follow up: Response: No adverse reaction aa5 Point of Care Testing: Urine : 07:11 hCG Reading: Positive; ea Outcome: 09:39 Discharge ordered by . pm1 10:26 Discharged to home ambulatory. aa5 10:26 Condition: stable 10:26 Discharge instructions given to patient, Instructed on discharge instructions, follow up and referral plans. medication usage, Demonstrated understanding of instructions, follow-up care, medications, Prescriptions given X 1. 10:27 Patient left the ED. aa5 Signatures: Dispatcher [employer] EDMS Fiorella Spangler RN RN aa1 Kamryn Malik aa4 Tana Townsend RN RN aa5 Alan Rapp NP ARCHIVES SPECIALIST pm1 Kamryn Tineo am2 Karen Harding RN RN ea
[2019-04-03] MEDS ORDERED: CEFTRIAXONE/SWI 1gm 1 GM/10 ML SYR ONE (10:08)
[2019-04-03 10:53] VITALS: BP 108/74; TEMP 98.2; O2SAT 100
== END 2019-04-03 10:27 | disposition home or self-care (01) ==
LOC: ER 06:17
DX: O20.0 Threatened abortion (principal); O23.41 Unspecified infection of urinary tract in pregnancy, first trimester; Z3A.01 Less than 8 weeks gestation of pregnancy
CPT/HCPCS: 36415; 76817; 80048; 81003; 81015; 81025; 85025; 86850; 86900; 86901; 96372; 96374; 99284; J0696; J2790

== ENCOUNTER 2019-04-22 13:04 | Day surgery (SDC) | payer OTHER ==
--- OUTSIDE RECORDS SUMMARY | 2019-04-22 13:09 | XMS REPORT | Summary of Care ---
:1995 Author Organization [facility] Address [address] [place] [address] Care Team Providers Name Role Phone Juany Thakkar ELEMENTARY SPECIAL EDUCATION TEACHER Primary Care Provider Reason for Visit Reason Comments Care Encounter Details Date Type Department Care Team Description [facility]17[facility]2019 [facility] High risk , antepartum (Primary Dx); Visit AMAN Correia [facility]; [address] [place] [address] [place]; [place], [place] Bleeding in early ; [id number] [place], [place] Obesity in [phone] Allergies Active Allergy Reactions Severity Noted Date Comments Naproxen Sodium Hives 04/29/2013 documented as of this encounter (statuses as of 04/17/2019) Medications Medication Sig Dispensed Refills Start Date End Date Status vit Take 1 Packet by 30 Each 6 03/27/2019 Active 66-yfsl-vpqyh-dha mouth daily. (SELECT-OB + DHA) 29 mg iron-1 mg -250 mg combo packIndications: High risk , antepartum proMETHazine 25 mg Take 1 tablet by 30 tablet 1 04/17/2019 Active tabletIndications: mouth every 4 Nausea (four) hours as needed for Nausea and Vomiting (N/V). documented as of this encounter (statuses as of 04/17/2019) Active Problems Problem Noted Date Nausea 04/17/2019 Bleeding in early 04/17/2019 Vaginal bleeding in 04/04/2019 Rh negative state in antepartum period 03/26/2019 Overview: Needs Rhogam at 28 and . Maternal varicella, non-immune 03/26/2019 Overview: Address in High risk , antepartum 03/25/2019 History of trauma 03/25/2019 Hand deformities, acquired, right 03/25/2019 Obesity in 03/25/2019 Multiparity 03/25/2019 Estimated Date of Delivery Comments Yes 11/28/2019 Based on last menstrual period of 02/21/2019 (Exact Date) documented as of this encounter (statuses as of 04/17/2019) Resolved Problems Problem Noted Date Resolved Date Well woman exam 03/27/2017 03/25/2019 Screen for STD (sexually transmitted disease) 03/27/2017 03/25/2019 Encounter for contraceptive management, unspecified 03/27/2017 03/25/2019 contraceptive encounter type Presence of intrauterine contraceptive device 03/27/2017 03/25/2019 Obesity, unspecified 03/27/2017 03/25/2019 Vaginitis and vulvovaginitis, unspecified 03/27/2017 03/25/2019 Encounter for IUD insertion 05/02/2013 03/25/2019 Overview: Exp 04/2023 Depo-Provera contraceptive status 04/29/2013 03/27/2017 Overview: Medical records received. Depo received 01/23/2013. 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 Morbid obesity 04/29/2013 03/25/2019 documented as of this encounter (statuses as of 04/17/2019) Immunizations Name Administration Dates Next Due Rubella 10/22/2008 Tdap 04/29/2010 documented as of this encounter Social History Tobacco Use Types Packs/Day Years Used Date Never Smoker Smokeless Tobacco: Never Used Alcohol Use Drinks/Week oz/Week Comments No Estimated Date of Delivery Comments Yes 11/28/2019 Based on last menstrual period of 02/21/2019 (Exact Date) Sex Assigned at Date Recorded Not on file Job Start Date Occupation Industry Not on file Not on file Not on file Travel History Travel Start Travel End No recent travel history available. documented as of this encounter Last Filed Vital Signs Vital Sign Reading Time Taken Comments Blood Pressure 118/74 04/17/2019 2:03 PM CDT Pulse 91 04/17/2019 2:03 PM CDT Temperature 36.8 C (98.2 F) 04/17/2019 2:03 PM CDT Respiratory Rate 16 04/17/2019 2:03 PM CDT Oxygen Saturation - - Inhaled Oxygen Concentration - - Weight 85.3 kg (188 lb 2 oz) 04/17/2019 2:03 PM CDT Height 160 cm (5' 3") 04/17/2019 2:03 PM CDT Body Mass Index 33.32 04/17/2019 2:03 PM CDT documented in this encounter Progress Notes Juany Thakkar, ELEMENTARY SPECIAL EDUCATION TEACHER - 04/17/2019 1:45 PM CDT Chief complaint: Chief Complaint Patient presents with Care HPI CC: Follow Up Visit Clara Ruth is a 23 year old, , /White female. Patient's last menstrual period was 02/21/2019 (exact date). She is 7w6d with an intrauterine . Her estimated date of delivery is 11/28/2019, by Last Menstrual Period. She complains of nausea no vomiting. She denies FM, contractions, LOF and bleeding today. Abuse Histories OB History Para Term AB Living 4 3 3 2 SAB TAB Ectopic Multiple Live Births 2 # Outcome Date GA Lbr Malick/2nd Weight Sex Delivery Anes PTL Lv 4 Current 3 Term 09/19/12 39w0d 6 lb 14 oz (3.118 kg) M VAGINAL YONAS 2 Term 10/07/10 40w1d 7 lb 8 oz (3.402 kg) M VAGINAL YONAS 1 Term Past Medical History: Diagnosis Date Anxiety dx as a teenager, not on medication at this time, not seeing MD at this time. Depression 09/19/2012 post depression. not on medication at this time. Genital herpes 10/2018 Hand deformity, right Hx of gallstones Dx 2-3 months ago. Migraine STD (sexually transmitted disease) 2011,2010 chlamydia x 2 and states was treated Trauma 05/31/2014 Vaginitis and vulvovaginitis, unspecified 03/27/2017 Vision problems wears glasses Family History Problem Relation Age of Onset Cancer Maternal Grandmother stomach No Significant Medical Problems Mother Other - see comments Father cirrhosis Depression Sister Asthma Sister Depression Paternal Uncle Psychiatry Paternal Uncle Anxiety Paternal Uncle Arthritis NoFHx defects NoFHx Breast Cancer NoFHx Colon Cancer NoFHx Ovarian Cancer NoFHx Uterine Cancer NoFHx Diabetes NoFHx Genetic NoFHx Heart NoFHx High cholesterol NoFHx Hypertension NoFHx Mental retardation NoFHx Neurological NoFHx Osteoporosis NoFHx Family Status Relation Name Status MGMo Mo Alive Fa Sis Alive MAunt Alive MUnc Alive PAunt Alive PUnc Alive MGFa Alive PGMo Alive PGFa NoFHx (Not Specified) Past Surgical History: Procedure Laterality Date CHOLECYSTECTOMY 2012 Social History Socioeconomic History Marital status: Single Spouse name: Not on file Number of children: 1 Years of education: 10 Highest education level: Not on file Occupational History 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 Social Needs Financial resource strain: Not on file Food insecurity: Worry: Not on file Inability: Not on file Transportation needs: Medical: Not on file Non-medical: Not on file Tobacco Use Smoking status: Never Smoker Smokeless tobacco: Never Used Substance and Sexual Activity Alcohol use: No Drug use: Never Sexual activity: Yes Partners: Male control/protection: None Comment: last sexual intercourse 03/24/2019 Lifestyle Physical activity: Days per week: Not on file Minutes per session: Not on file Stress: Not on file Relationships Social connections: Talks on phone: Not on file Gets together: Not on file Attends shinto service: Not on file Active member of club or organization: Not on file Attends meetings of clubs or organizations: Not on file Relationship status: Not on file Intimate partner violence: Fear of current or ex partner: Not on file Emotionally abused: Not on file Physically abused: Not on file Forced sexual activity: Not on file Other Topics Concern Service Not Asked Blood Transfusions No Caffeine Concern Not Asked Occupational Exposure Not Asked Hobby Hazards Not Asked Sleep Concern Not Asked Stress Concern Not Asked Weight Concern Not Asked Special Diet Not Asked Back Care Not Asked Exercise Not Asked Bike Helmet Not Asked Seat Belt Not Asked Self-Exams Not Asked Social History Narrative Pt states her shinto preference is non adventist Lives with children. No domestic violence or abuse Social History Substance and Sexual Activity Sexual Activity Yes Partners: Male control/protection: None Comment: last sexual intercourse 03/24/2019 Labs No new labs Radiology No new radiology. Allergies Clara is allergic to aleve [naproxen sodium]. Medications Clara has a current medication list which includes the following prescription( s): promethazine andprenatal vit 85-chkw-vsiyo-dha. Review of Systems Eyes: Negative for visual disturbance. Cardiovascular: Negative for leg swelling. Gastrointestinal: Positive for nausea. Negative for abdominal pain and vomiting. Genitourinary: Negative for vaginal bleeding, vaginal discharge and pelvic pain. Neurological: Negative for headaches. BP 118/74 (BP Location: Right arm, Patient Position: Sitting, BP CUFF SIZE: Adult Small) | Pulse 91 | Temp 36.8 C (98.2 F) (Oral) | Resp 16 | Ht 5' 3 " (1.6 m) | Wt 188 lb 2 oz (85.3 kg) | LMP02/21/2019 (Exact Date) | BMI 33.32 kg/m Pregravid BMI: 33.1 Physical Exam PHYSICAL: General Exam: Neurological: Normal Abdomen: Normal Extremities: Normal Pelvic Exam: Uterus: 8cm Weeks Assessment/Plan High risk , antepartum (primary encounter diagnosis) [facility] Comment: Routine Visit Plan: POCT URINALYSIS W SPECIFIC GRAVITY, POCT URINALYSIS W SPECIFIC GRAVITY Denies zika virus risk, signs and symptoms such as fever,rash,joint pain, conjunctivitis (red eyes), muscle pain, headaches; outside [place] travel to areas affected by zika, and FOB exposure to zika.Educated on use of mosquito repellent. Nausea Comment: patient complains of symtoms Plan: proMETHazine 25 mg tablet Bleeding in early Comment: received early Rhogam Plan: patient nimo any current bleeding. Obesity in Comment: See BMI Plan: Patient encouraged to limit weight gain and sensible diet. Return to clinic in 4 weeks. Discussed treatment options. Medications as ordered. Reviewed patient instructions and provided printed copy. This visit did not involve counseling and coordination that comprised more than 50% of the visit time. 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 Visit Maternal Medicine 05/15/2019 Routine Visit OB Satellites Juany Thakkar, ELEMENTARY SPECIAL EDUCATION TEACHER [address] [place] [address] [phone] Name Type Priority Associated Diagnoses Order Schedule POCT URINALYSIS W LAB Routine High risk , 20 Occurrences starting SPECIFIC GRAVITY antepartum 04/17/2019 until [facility] 02/11/2020, 1 completed Health Maintenance Due Date Last Done Comments MENINGOCOCCAL B VACCINES (1 2005 of 2 - Risk Bexsero 2-dose series) VARICELLA VACCINES (1 of 2 - 2008 13+ 2-dose series) HPV VACCINES (1 - Female 2010 3-dose series) INFLUENZA VACCINE 05/18/2019 CHLAMYDIA SCREENING 03/25/2020 03/25/2019, 11/27/2018, 07/09/2018, Additional history exists PAP SMEAR 03/27/2020 03/27/2017, 10/22/2008 DTaP,Tdap,and Td Vaccines (2 04/29/2020 04/29/2010 - Td) PNEUMOCOCCAL 0-64 YEARS Aged Out No longer eligible COMBINED SERIES based on patient's age to complete this topic documented as of this encounter Procedures Procedure Name Priority Date/Time Associated Diagnosis Comments POCT URINALYSIS Routine 04/17/2019 2:05 PM High risk , Results for this CDT antepartum procedure are in [facility] the results section. documented in this encounter Results POCT URINALYSIS W SPECIFIC GRAVITY (04/17/2019 2:05 PM CDT) POCT U SP GRAV . 1.005 - 1.025 mg/dl POCT PH U . 5 - 8 mg/dl POCT U LEUK EST . Negative - Negative POCT U NIT . Negative - Negative POCT U PROT neg Negative - Negative POCT U GLU neg Negative - Negative POCT U KETONE . Negative - Negative POCT U UROBILI . 0.2 - 1 mg/dl POCT U BILI . Negative - Negative POCT U BLD . Negative - Negative POCT U COLOR POCT U APPEAR Specimen Urine - URINE, CLEAN CATCH documented in this encounter Visit Diagnoses Diagnosis High risk , antepartum - Primary [facility] Nausea Nausea alone Bleeding in early Unspecified hemorrhage in early , unspecified as to episode of care Obesity in Obesity complicating , childbirth, or the puerperium, unspecified as to episode of care or not applicable documented in this encounter Insurance Payer Benefit Plan / Subscriber ID Effective Phone Address Type Group Dates [facility] xxxxxxxxx 2019-Alia TOBAR Medicaid HEALTH CHOICE - HEALTH [employer] [id number] MANAGED MEDICAID [place], [place]ICA[place] [id number] [address] y (Home) [address] [place] [address] documented as of this encounter Advance Directives Name Relationship Healthcare Agent Communication Relationship Nathalia Lopez Sibling Primary healthcare agent Michelle Lopez Sibling Primary healthcare agent
--- OUTSIDE RECORDS SUMMARY | 2019-04-22 13:09 | XMS REPORT | Clinical Summary ---
:1995 Author Organization [facility] Address [address] [place] [id number] Care Team Providers Name Role Phone Alonzo Sulma Primary Care Provider Unavailable Allergies Active Allergy [...] Not on file Results Not on fileafter 04/21/2018 Insurance Payer Benefit Plan / Subscriber ID Type Phone Address Group MEDICAID - MEDICAID MEDICAID COMM xxxxxxxxx Medicaid Contracted [facility] HEALTH CHOICE
--- OUTSIDE RECORDS SUMMARY | 2019-04-22 13:09 | XMS REPORT ---
:1995 [facility] Address [address] [place] [address] [address] [place] [address] Care Team Providers Name Role Phone Unavailable Unavailable Unavailable Problems This patient has no known problems. Allergies, Adverse Reactions, Alerts This patient has no known allergies or adverse reactions. Medications This patient has no known medications.
--- NOTE | 2019-04-22 14:48 | RAD REPORT ---
EXAM DESCRIPTION: Eb Single View04/22/2019 2:03 pm CLINICAL HISTORY: Swallowed foreign body COMPARISON: none FINDINGS: A radiopaque foreign body is not seen within the chest but can be missed with x-ray. The lungs appear clear of acute infiltrate. The heart is normal size
--- NOTE | 2019-04-22 16:15 | RAD REPORT ---
EXAM DESCRIPTION: RAD - Abdomen 1 View (KUB) - 04/22/2019 4:04 pm CLINICAL HISTORY: Ingested chicken bone, abdominal pain, early COMPARISON: None. FINDINGS: A single view of the abdomen was performed. Imaging was superior to the iliac crest level. Abdominal shielding was utilized. Consent was obtained from the patient. A linear density is present in the medial right upper quadrant superimposed on the right twelfth rib. Size and appearance would be consistent with an ingested chicken bone. In this location this is most likely antrum of the stomach. No bowel obstruction, no free air or pneumatosis. No other radiopaque foreign body or suspicious find ing noted. No significant bony findings IMPRESSION: Linear bone density in the medial right upper quadrant is consistent with an ingested ch icken bone. In this location this is most likely antrum of the stomach rather than duodenum.
--- NOTE | 2019-04-22 16:31 | EDPHYS ---
Physician Documentation [facility] Name: Clara Ruth Age: 23 yrs Sex: Female : 1995 Arrival Date: 04/22/2019 Time: 13:05 Bed 6 Private MD: ED Physician Darío Son HPI: 04/22 13:23 This 23 yrs old Female presents to ER via Ambulatory with complaints of pm1 Swallowed Foreign Body - Chicken Bone. 13:23 The patient presents with ingested chicken bone. pm1 13:23 Onset: The symptoms/episode began/occurred just prior to arrival. Associated signs and pm1 symptoms: Pertinent positives: scratchy throat, Pertinent negatives: chest pain, nausea, shortness of breath, vomiting, inability to swallow, inability to swallow secretions. Modifying factors: The symptoms are alleviated by nothing, the symptoms are aggravated by nothing. Severity of pain: Severity of pain: in the emergency department the pain is a 0 / 10. The patient has not experienced similar symptoms in the past. Goes to [facility] [place] clinic for OB care. Patient currently 9 weeks . Patient was eating chicken wings and accidentally swallowed the radius/ulna of chicken wing. Patient was able to drink water without any difficulty following ingestion of chicken bone. 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 - Social history:: Smoking status: Patient/guardian denies using tobacco. - Ebola Screening: : Patient denies exposure to infectious person Patient denies travel to an Ebola-affected area in the 21 days before illness onset. ROS: 13:23 Constitutional: Negative for fever, chills, and weight loss, Eyes: Negative for injury, pm1 pain, redness, and discharge, Neck: Negative for injury, pain, and swelling, Cardiovascular: Negative for chest pain, palpitations, and edema. 13:23 Respiratory: Negative for shortness of breath, cough, wheezing, and pleuritic chest pain, Abdomen/GI: Negative for abdominal pain, nausea, vomiting, diarrhea, and constipation, Back: Negative for injury and pain, : Negative for injury, bleeding, discharge, and swelling, MS/Extremity: Negative for injury and deformity, Skin: Negative for injury, rash, and discoloration, Neuro: Negative for headache, weakness, numbness, tingling, and seizure. 13:23 ENT: Positive for sore throat, Negative for difficulty swallowing, difficulty handling secretions, hoarseness. Exam: 13:23 Constitutional: This is a well developed, well nourished patient who is awake, alert, pm1 and in no acute distress. Head/Face: Normocephalic, atraumatic. Neck: Trachea midline, no thyromegaly or masses palpated, and no cervical lymphadenopathy. Supple, full range of motion without nuchal rigidity, or vertebral point tenderness. No Meningismus. 13:23 Chest/axilla: Normal chest wall appearance and motion. Nontender with no deformity. No lesions are appreciated. Cardiovascular: Regular rate and rhythm with a normal S1 and S2. No gallops, murmurs, or rubs. Normal PMI, no JVD. No pulse deficits. Respiratory: Lungs have equal breath sounds bilaterally, clear to auscultation and percussion. No rales, rhonchi or wheezes noted. No increased work of breathing, no retractions or nasal flaring. Abdomen/GI: Soft, non-tender, with normal bowel sounds. No distension or tympany. No guarding or rebound. No evidence of tenderness throughout. Back: No spinal tenderness. No costovertebral tenderness. Full range of motion. Skin: Warm, dry with normal turgor. Normal color with no rashes, no lesions, and no evidence of cellulitis. MS/ Extremity: Pulses equal, no cyanosis. Neurovascular intact. Full, normal range of motion. 13:23 ENT: Posterior pharynx: is normal, airway is patent, Airway: no evidence of obstruction, patent, swelling, is not appreciated. 13:23 Neuro: Orientation: is normal, Motor: is normal, moves all fours, Gait: is steady, at a normal pace, without difficulty. Vital Signs: 13:13 BP 123 / 73; Pulse 88; Resp 16; Temp 98.4(O); Pulse Ox 98% on R/A; Weight 85.28 kg; ss Height 5 ft. 3 in. (160.02 cm); Pain 0/10; 15:00 BP 112 / 67; Pulse 69; Resp 17; Pulse Ox 100% on R/A; tw2 16:00 BP 104 / 60; Pulse 80; Resp 17; Pulse Ox 99% on R/A; tw2 17:05 BP 122 / 76; Pulse 71; Resp 16; Pulse Ox 100% on R/A; tw2 13:13 Body Mass Index 33.30 (85.28 kg, 160.02 cm) ss MDM: 13:08 Patient medically screened. johanna 13:23 Physician consultation: Amol Oh MD Due to patient's , start with chest pm1 xray with patient shielded to look for foreign body. 15:05 Physician consultation: Robin Andrade MD regarding consult, patient's condition, pm1 Recommends KUB to determine location of chicken bone, if in stomach or small intestine. Call back with results of KUB. 15:11 Data reviewed: vital signs. Data interpreted: Pulse oximetry: on room air is 98 %. pm1 Interpretation: normal. 15:40 Physician consultation: Richardson Stock MD was called at 15:41, was contacted at 15:41, pm1 regarding consult, patient's condition, Recommends 1 single film KUB with fully wrapped pelvis. 16:24 Physician consultation: Robin Andrade MD was called at 16:24, was contacted at 16:24, pm1 regarding consult, patient's condition, and will see patient in OR, Call team, will see patient and remove foreign body in stomach. 16:29 Counseling: I had a detailed discussion with the patient and/or guardian regarding: the pm1 historical points, exam findings, and any diagnostic results supporting the discharge/admit diagnosis, radiology results, the need for further work-up and treatment in the hospital. 04/22 16:34 Order name: Urine Dipstick--Ancillary (enter results); Complete Time: 16:52 bd 04/22 16:34 Order name: Urine --Ancillary (enter results); Complete Time: 16:52 bd 04/22 13:23 Order name: Chest Single View XRAY; Complete Time: 14:52 pm1 04/22 15:40 Order name: XRAY Abdomen 1 View (KUB); Complete Time: 16:31 pm1 04/22 16:32 Order name: IV Saline Lock; Complete Time: 16:56 pm1 04/22 16:32 Order name: Urine Dipstick-Ancillary (obtain specimen); Complete Time: 16:56 pm1 08 16:32 Order name: Urine Test (obtain specimen); Complete Time: 16:56 pm1 04/22 16:49 Order name: NPO; Complete Time: 16:56 pm1 Administered Medications: 17:04 Drug: NS 0.9% 1000 ml Route: IV; Rate: 125 ml/hr; Site: right antecubital; tw2 17:24 Follow up: IV Status: Infusion continued upon admission tw2 Disposition: 04/23 07:13 Co-signature as Attending Physician, Darío Son MD I agree with the assessment and johanna plan of care. Disposition: 04/22/19 16:30 Hospitalization ordered by Robin Andrade for Observation. Preliminary diagnosis is Foreign body in stomach. - Bed requested for Operating Room. - Status is Observation. tw2 - Condition is Stable. - Problem is new. - Symptoms are unchanged. UTI on Admission? No Signatures: Dispatcher [employer] EDMT Darío Son MD MD cha Smirch, Shelby, RN RN Alan Benoit NP PROCUREMENT ENGINEER pm1 Mya Pickard RN RN tw2 Corrections: (The following items were deleted from the chart) 04/22 17:12 15:44 Physician consultation: Amol Oh MD Due to patient's , start with pm1 chest xray with patient shielded to look for foreign body, pm1 17:23 16:30 Hospitalization Ordered by Robin Andrade MD for Observation. Preliminary tw2 diagnosis is Foreign body in stomach. Bed requested for Operating Room. Status is Observation. Condition is Stable. Problem is new. Symptoms are unchanged. UTI on Admission? No. pm1
--- NOTE | 2019-04-22 16:31 | ER ---
Nurse's Notes [facility] Name: Clara Ruth Age: 23 yrs Sex: Female : 1995 Arrival Date: 04/22/2019 Time: 13:05 Bed 6 Private MD: Diagnosis: Foreign body in stomach Presentation: 04/22 13:12 Presenting complaint: Patient states: "I swallowed part of a chicken bone. It doesn't ss feel like it's stuck, but it just feels weird when I swallow. I didn't know whether I should come in or not, but I'm just worried, especially because I'm .". Transition of care: patient was not received from another setting of care. Onset of symptoms was April 22, 2019. Risk Assessment: Do you want to hurt yourself or someone else? Patient reports no desire to harm self or others. Initial Sepsis Screen: Does the patient meet any 2 criteria? No. Patient's initial sepsis screen is negative. Does the patient have a suspected source of infection? No. Patient's initial sepsis screen is negative. Care prior to arrival: None. 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 - Social history:: Smoking status: Patient/guardian denies using tobacco. - Ebola Screening: : Patient denies exposure to infectious person Patient denies travel to an Ebola-affected area in the 21 days before illness onset. Screenin:40 Abuse screen: Denies threats or abuse. Nutritional screening: No deficits noted. tw2 Tuberculosis screening: No symptoms or risk factors identified. Fall Risk None identified. Assessment: 13:40 General: Appears in no apparent distress. well groomed, Behavior is calm, cooperative, tw2 appropriate for age. Pain: Denies pain. Neuro: Level of Consciousness is awake, alert, obeys commands, Oriented to person, place, time, situation. Cardiovascular: Heart tones S1 S2 Patient's skin is warm and dry. Respiratory: Airway is patent Respiratory effort is even, unlabored, Respiratory pattern is regular, symmetrical, Breath sounds are clear bilaterally. GI: Reports "it feels weird when i swallow". : No signs and/or symptoms were reported regarding the genitourinary system. EENT: No signs and/or symptoms were reported regarding the EENT system. Derm: No signs and/or symptoms reported regarding the dermatologic system. Musculoskeletal: Range of motion: intact in all extremities. 14:41 Reassessment: Patient appears in no apparent distress at this time. No changes from tw2 previously documented assessment. Patient and/or family updated on plan of care and expected duration. Pain level reassessed. Patient is alert, oriented x 3, equal unlabored respirations, skin warm/dry/pink. provider at bedside at this time. 15:55 Reassessment: Patient appears in no apparent distress at this time. No changes from tw2 previously documented assessment. Patient and/or family updated on plan of care and expected duration. Pain level reassessed. Patient is alert, oriented x 3, equal unlabored respirations, skin warm/dry/pink. 16:00 Reassessment: Patient appears in no apparent distress at this time. No changes from tw2 previously documented assessment. Patient and/or family updated on plan of care and expected duration. Pain level reassessed. Patient is alert, oriented x 3, equal unlabored respirations, skin warm/dry/pink. 17:04 Reassessment: Patient appears in no apparent distress at this time. No changes from tw2 previously documented assessment. Patient and/or family updated on plan of care and expected duration. Pain level reassessed. Patient is alert, oriented x 3, equal unlabored respirations, skin warm/dry/pink. 17:23 Reassessment: Patient appears in no apparent distress at this time. No changes from tw2 previously documented assessment. Patient and/or family updated on plan of care and expected duration. Pain level reassessed. Patient is alert, oriented x 3, equal unlabored respirations, skin warm/dry/pink. Vital Signs: 13:13 BP 123 / 73; Pulse 88; Resp 16; Temp 98.4(O); Pulse Ox 98% on R/A; Weight 85.28 kg; ss Height 5 ft. 3 in. (160.02 cm); Pain 0/10; 15:00 BP 112 / 67; Pulse 69; Resp 17; Pulse Ox 100% on R/A; tw2 16:00 BP 104 / 60; Pulse 80; Resp 17; Pulse Ox 99% on R/A; tw2 17:05 BP 122 / 76; Pulse 71; Resp 16; Pulse Ox 100% on R/A; tw2 13:13 Body Mass Index 33.30 (85.28 kg, 160.02 cm) ED Course: 13:05 Patient arrived in ED. as 13:07 Placed in gown. Bed in low position. Pulse ox on. NIBP on. tw2 13:08 Alan Rapp NP is PHCP. pm1 13:08 Darío Son MD is Attending Physician. pm1 13:13 Triage completed. ss 13:13 Arm band placed on right wrist. ss 13:39 Mya Pickard RN is Primary Nurse. tw2 14:06 Chest Single View XRAY In Process Unspecified. EDMS 14:41 No provider procedures requiring assistance completed. tw2 16:01 XRAY Abdomen 1 View (KUB) In Process Unspecified. EDMS 16:29 Robin Andrade MD is Hospitalizing Provider. pm1 16:57 Inserted saline lock: 20 gauge in right antecubital area, using aseptic technique. ms 17:23 Patient admitted, IV remains in place. tw2 Administered Medications: 17:04 Drug: NS 0.9% 1000 ml Route: IV; Rate: 125 ml/hr; Site: right antecubital; tw2 17:24 Follow up: IV Status: Infusion continued upon admission tw2 Outcome: 16:30 Decision to Hospitalize by Provider. pm1 17:23 Admitted to OR accompanied by nurse, via wheelchair, with chart, Report called to tw2 CAMACHO Peck 17:23 Condition: stable 17:23 Instructed on the need for admit. 17:23 Patient left the ED. tw2 Signatures: Dispatcher [employer] JAYASHREEMS Mansi Chaparro Maria ms Smirch, Shelby, RN RN Alan Rapp, AZEEM PALLET REPAIRER pm1 yMa Pickard RN RN tw2
[2019-04-22 16:40] LABS: Urine Blood NEGATIVE (NEG); Urine Glucose NEGATIVE (NEG); Urine Protein NEGATIVE (NEG); Urine Specific Gravity 1.025 (1.005-1.030)
[2019-04-22] MEDS ORDERED: NA CHLORIDE 0.9% 1,000 ML ONE (17:03)
[2019-04-22] MEDS ORDERED: LIDOCAINE 1% MPF 5 ML VIAL ONE (17:42)
[2019-04-22] MEDS ORDERED: PROPOFOL 200 MG/20 ML VIAL IV ONE (17:42)
[2019-04-22 18:30] VITALS: O2SAT 100
[2019-04-22 18:42] VITALS: TEMP 98.4
[2019-04-22 18:59] VITALS: BP 118/78
--- NOTE | 2019-04-22 19:14 | ENDO RPT ---
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 TOPICAL ANESTHETIC: none CONSENT: The patient understands the risks and benefits of the procedure and understands that these risks include, but are not limited to: sedation, allergic reaction, infection, perforation and/or bleeding. Alternative means of evaluation and treatment include, among others: physical exam, x-rays, and/or surgical intervention. The patient elects to proceed with this endoscopic procedure. DESCRIPTION OF PROCEDURE: During intra-op preparation period all mechanical medical equipment was checked for proper function. Hand hygiene and appropriate measures for infection prevention was taken. Procedure, possible complications, and alternatives including but not limited to the possibility of bleeding, perforation, tear, infection, sepsis, need for surgery, need for blood transfusion, and anesthesia related complications were explained to the patient. After the risks, benefits and alternatives of the procedure were thoroughly explained, Informed consent was verified, confirmed and timeout was successfully executed by the treatment team. The patient was placed in the left lateral position. The patient was anesthetized with topical anesthesia. Through the anesthetized oropharyngeal area, the scope was passed without any difficulty. The [id number] ([id number]) endoscope was introduced through the mouth and advanced to the first portion of the duodenum. Retroflexed views revealed no abnormalities. The gastroscope was then slowly withdrawn and removed. 2 inch chicken wing bone found in the bulb of the duodenum. 2 inch thin 1/8 from GI tract successfully. ADVERSE EVENTS: There were no complications. IMPRESSIONS: 2 inch chicken wing bone in the bulb of the duodenum grasped RECOMMENDATIONS: follow-up: GI clinic PRN REPEAT EXAM: Robin Andrade Dr eSigned: Robin Andrade Dr 04/22/2019 7:13 PM cc: CPT CODES: ICD9 CODES: PATIENT NAME: Clara Ruth MR#: [id number]
--- OUTSIDE RECORDS SUMMARY | 2019-04-23 11:42 | XMS REPORT | Clinical Summary ---
:1995 Author Organization [facility] Address [address] [place] [id number] Care Team Providers Name Role Phone Alonzo [...] Not on file Results Not on fileafter 04/22/2018 Insurance Payer Benefit Plan / Subscriber ID Type Phone Address Group MEDICAID - MEDICAID MEDICAID COMM xxxxxxxxx Medicaid Contracted [facility] HE[facility] CHOICE
--- OUTSIDE RECORDS SUMMARY | 2019-04-23 11:42 | XMS REPORT ---
:1995 [facility] Address [address] [place] [address] [address] [place] [address] Care Team Providers Name Role Phone Unavailable Unavailable Unavailable Problems This patient has no known problems. Allergies, Adverse Reactions, Alerts This patient has no known allergies or adverse reactions. Medications This patient has no known medications.
== END 2019-04-22 19:21 | disposition home or self-care (01) ==
LOC: ER 13:04 → DS 17:23 → ER 19:21
PROVIDERS: ATTEND Internal Medicine Gastroenterology
PROC: 0DC98ZZ Extirpation of Matter from Duodenum, Via Natural or Artificial Opening Endoscopic (ICD-10-PCS; principal; 2019-04-22 17:21)
DX: T18.8XXA Foreign body in other parts of alimentary tract, initial encounter (principal); X58.XXXA Exposure to other specified factors, initial encounter; Z33.1 Pregnant state, incidental
CPT/HCPCS: 43247; 81025; 81003; 74018; 71045; 96360; 99285; J2704; J7030

== ENCOUNTER 2019-05-13 09:30 | Emergency (ER) | payer OTHER ==
--- OUTSIDE RECORDS SUMMARY | 2019-05-13 09:33 | XMS REPORT ---
:1995 [facility] Address [address] [place] [address] [address] [place] [address] Care Team Providers Name Role Phone Unavailable Unavailable Unavailable Problems This patient has no known problems. Allergies, Adverse Reactions, Alerts This patient has no known allergies or adverse reactions. Medications This patient has no known medications.
--- OUTSIDE RECORDS SUMMARY | 2019-05-13 09:33 | XMS REPORT | Clinical Summary ---
:[address] [facility] Address [address] [place] [id number] Care Team Providers Name Role Phone Alonzo [...] Not on file Results Not on fileafter 05/12/2018 Insurance Payer Benefit Plan / Subscriber ID Type Phone Address Group MEDICAID - MEDICAID MEDICAID COMM xxxxxxxxx Medicaid Contracted [facility] HEALTH CHOICE
--- NOTE | 2019-05-13 09:50 | ER ---
Nurse's Notes [facility] Name: Clara Ruth Age: 23 yrs Sex: Female : 1995 Arrival Date: 05/13/2019 Time: 09:33 Bed 23 Private MD: None, None Diagnosis: Allergic rhinitis, unspecified Presentation: 05/13 09:38 Presenting complaint: Patient states: i sneezed like 600 times yesterday and i feel tw2 like my sinuses are just at an all time high, i am super congested and i cant take anything because i am . Transition of care: patient was not received from another setting of care. Onset of symptoms was May 13, 2019. Risk Assessment: Do you want to hurt yourself or someone else? Patient reports no desire to harm self or others. Initial Sepsis Screen: Does the patient meet any 2 criteria? No. Patient's initial sepsis screen is negative. Does the patient have a suspected source of infection? No. Patient's initial sepsis screen is negative. Care prior to arrival: None. 09:38 Method Of Arrival: Ambulatory tw2 09:38 Acuity: PRATEEK 4 tw2 09:40 Presenting complaint: Patient states: i just came in because work makes us come to get tw2 a note. Triage Assessment: 09:40 General: Appears in no apparent distress. Behavior is calm, cooperative, appropriate tw2 for age. Pain: Complains of pain in nose. EENT: Reports nasal congestion nasal discharge. Neuro: Level of Consciousness is awake, alert, obeys commands, Oriented to person, place, time, situation. Cardiovascular: Patient's skin is warm and dry. Respiratory: Airway is patent Respiratory effort is even, unlabored, Respiratory pattern is regular, symmetrical. GI: No signs and/or symptoms were reported involving the gastrointestinal system. : No signs and/or symptoms were reported regarding the genitourinary system. Derm: No signs and/or symptoms reported regarding the dermatologic system. Musculoskeletal: Range of motion: intact in all extremities. 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 tw2 Historical: - Allergies: 09:36 Aleve; tw2 - PSHx: 09:36 Cholecystectomy; R hand; tw2 - Immunization history:: Adult Immunizations. - Social history:: Smoking status: . - Ebola Screening: : Patient denies travel to an Ebola-affected area in the 21 days before illness onset. - Family history:: not pertinent. - Hospitalizations: : No recent hospitalization is reported. Screenin:35 Abuse screen: Denies threats or abuse. Nutritional screening: No deficits noted. tw2 Tuberculosis screening: No symptoms or risk factors identified. Fall Risk None identified. Assessment: 09:41 Reassessment: see triage assessment. tw2 09:41 Reassessment: provider at bedside. tw2 09:55 Reassessment: Patient appears in no apparent distress at this time. No changes from tw2 previously documented assessment. Patient and/or family updated on plan of care and expected duration. Pain level reassessed. Patient is alert, oriented x 3, equal unlabored respirations, skin warm/dry/pink. Vital Signs: 09:39 BP 131 / 83; Pulse 101; Resp 18; Temp 98.2(TE); Pulse Ox 100% on R/A; tw2 ED Course: 09:33 Patient arrived in ED. ag5 09:33 None, None is Private Physician. ag5 09:35 Salvador Guzman MD is Attending Physician. rn 09:35 Mya Pickard RN is Primary Nurse. tw2 09:35 Arm band placed on. tw2 09:36 Bed in low position. Call light in reach. tw2 09:39 Triage completed. tw2 09:54 No provider procedures requiring assistance completed. Patient did not have IV access tw2 during this emergency room visit. Administered Medications: No medications were administered Outcome: 09:49 Discharge ordered by . rn 09:54 Discharged to home ambulatory. tw2 09:54 Condition: stable 09:54 Discharge instructions given to patient, Instructed on discharge instructions, follow up and referral plans. Demonstrated understanding of 09:55 Demonstrated understanding of instructions, follow-up care. tw2 09:55 Patient left the ED. tw2 Signatures: Salvador Guzman MD MD rn Wise, Tara, RN RN tw2 Jing Ronquillo ag5
--- NOTE | 2019-05-13 09:50 | EDPHYS ---
Physician Documentation [facility] Name: Clara Ruth Age: 23 yrs Sex: Female : 1995 Arrival Date: 05/13/2019 Time: 09:33 Bed 23 Private MD: None, None ED Physician Salvador Guzman HPI: 05/13 09:42 This 23 yrs old Female presents to ER via Ambulatory with complaints of Sinus rn Congestion. 09:42 The patient or guardian reports runny nose, sneezing. Onset: The symptoms/episode rn began/occurred yesterday. Severity of symptoms: At their worst the symptoms were mild, in the emergency department the symptoms are unchanged. Modifying factors: The symptoms are alleviated by nothing, the symptoms are aggravated by nothing. The patient has experienced similar episodes in the past. Reports has been sneezing a lot since yesterday, runny nose, no fever/chills/sob/cough/sore throat. Reports had to miss work and doctor is in [place] so came here for work note. Reports so told can take zyrtec and tylenol. . 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 tw2 Historical: - Allergies: 09:36 Aleve; tw2 - PSHx: 09:36 Cholecystectomy; R hand; tw2 - Immunization history:: Adult Immunizations. - Social history:: Smoking status: . - Ebola Screening: : Patient denies travel to an Ebola-affected area in the 21 days before illness onset. - Family history:: not pertinent. - Hospitalizations: : No recent hospitalization is reported. ROS: 09:42 Constitutional: Negative for fever, chills, and weight loss, Eyes: Negative for injury, rn pain, redness, and discharge, ENT: + sinus congestion and runny nose Neck: Negative for injury, pain, and swelling, Cardiovascular: Negative for chest pain, palpitations, and edema, Respiratory: Negative for shortness of breath, cough, wheezing, and pleuritic chest pain, Abdomen/GI: Negative for abdominal pain, nausea, vomiting, diarrhea, and constipation, MS/Extremity: Negative for injury and deformity, Skin: Negative for injury, rash, and discoloration, Neuro: Negative for headache, weakness, numbness, tingling, and seizure. Exam: 09:42 Constitutional: This is a well developed, well nourished patient who is awake, alert, rn and in no acute distress. Ambulatory to room Head/Face: Normocephalic, atraumatic. Eyes: Pupils equal round and reactive to light, extra-ocular motions intact. Lids and lashes normal. Conjunctiva and sclera are non-icteric and not injected. Cornea within normal limits. Periorbital areas with no swelling, redness, or edema. ENT: + inflamed bilateral nasal turbinates, clear oropharynx, no stridor Neck: Trachea midline, no thyromegaly or masses palpated, and no cervical lymphadenopathy. Supple, full range of motion without nuchal rigidity, or vertebral point tenderness. No Meningismus. Respiratory: No increased work of breathing, no retractions or nasal flaring. Skin: Warm, dry Neuro: Awake and alert, GCS 15, oriented to person, place, time, and situation. Cranial nerves II-XII grossly intact. Motor strength 5/5 in all extremities. Sensory grossly intact. Cerebellar exam normal. Normal gait. Vital Signs: 09:39 BP 131 / 83; Pulse 101; Resp 18; Temp 98.2(TE); Pulse Ox 100% on R/A; tw2 MDM: 09:35 Patient medically screened. rn 09:42 Differential Diagnosis: Upper Respiratory Infection Allergic Rhinitis. Data reviewed: rn vital signs, nurses notes, and as a result, I will discharge patient. Counseling: I had a detailed discussion with the patient and/or guardian regarding: the historical points, exam findings, and any diagnostic results supporting the discharge/admit diagnosis, the need for outpatient follow up, to return to the emergency department if symptoms worsen or persist or if there are any questions or concerns that arise at home. Special discussion: I discussed with the patient/guardian in detail that at this point there is no indication for admission to the hospital. It is understood, however, that if the symptoms persist or worsen the patient needs to return immediately for re-evaluation. ED course: Sounds most like allergic rhinitis vs viral URI. Will dc home without abx as no indication at this point, and . Advise zyrtec as needed. . Administered Medications: No medications were administered Disposition: 05/13/19 09:49 Discharged to Home. Impression: Allergic rhinitis, unspecified. - Condition is Stable. - Discharge Instructions: Allergic Rhinitis. - Medication Reconciliation Form, Thank You Letter, Antibiotic Education, Prescription Opioid Use, Work release form form. - Follow up: Private Physician; When: As needed; Reason: Recheck today's complaints, Re-evaluation by your physician. - Problem is new. - Symptoms have improved. Signatures: Salvador Guzman MD MD rn Pickard, CAMACHO Roque RN tw2 Corrections: (The following items were deleted from the chart) 09:55 09:49 05/13/2019 09:49 Discharged to Home. Impression: Allergic rhinitis, unspecified. tw2 Condition is Stable. Forms are Work release form, Medication Reconciliation Form, Thank You Letter, Antibiotic Education, Prescription Opioid Use. Follow up: Private Physician; When: As needed; Reason: Recheck today's complaints, Re-evaluation by your physician. Problem is new. Symptoms have improved. rn
[2019-05-13 10:23] VITALS: BP 131/83; TEMP 98.2; O2SAT 100
== END 2019-05-13 09:55 | disposition home or self-care (01) ==
LOC: ER 09:30
DX: O26.899 Other specified pregnancy related conditions, unspecified trimester (principal); J30.9 Allergic rhinitis, unspecified; Z3A.00 Weeks of gestation of pregnancy not specified; Z88.6 Allergy status to analgesic agent
CPT/HCPCS: 99281

== ENCOUNTER 2019-06-03 09:37 | Emergency (ER) | payer OTHER ==
--- OUTSIDE RECORDS SUMMARY | 2019-06-03 09:51 | XMS REPORT | Clinical Summary ---
:1995 Author Organization [facility] Address [address] [place] [id number] Care Team Providers Name Role Phone Simona [...] Not on file Results Not on fileafter 06/02/2018 Insurance Payer Benefit Plan / Subscriber ID Type Phone Address Group MEDICAID - MEDICAID MEDICAID COMM xxxxxxxxx Medicaid Contracted [facility] CHOICE
--- OUTSIDE RECORDS SUMMARY | 2019-06-03 09:51 | XMS REPORT ---
:1995 [facility] [address] [place] [address] [address] [place] [address] Care Team Providers Name Role Phone Unavailable Unavailable Unavailable Problems This patient has no known problems. Allergies, Adverse Reactions, Alerts This patient has no known allergies or adverse reactions. Medications This patient has no known medications.
[2019-06-03] MEDS ORDERED: ACETAMINOPHEN 500 MG TAB ONE (10:34)
[2019-06-03] MEDS ORDERED: NA CHLORIDE 0.9% 1,000 ML ONE (10:34)
[2019-06-03] MEDS ORDERED: CEFTRIAXONE/SWI 1gm 1 GM/10 ML SYR ONE (10:35)
[2019-06-03 11:16] LABS: Urine Bacteria NONE SEEN /HPF (<20); Urine Culture Reflex Order NOT NEEDED; Urine RBC <5 /HPF (NONE SEEN)
--- NOTE | 2019-06-03 11:25 | ER ---
Nurse's Notes [facility] Name: Clara Ruth Age: 23 yrs Sex: Female : 1995 Arrival Date: 06/03/2019 Time: 09:40 Bed 15 Private MD: None, None Diagnosis: Acute throat pain;strep pharyngitis;dehydration Presentation: 06/03 09:45 Presenting complaint: Sore throat, headache, fever, nausea, and body aches x 2 days, hb diarrhea x 1 today. TMAX 101.3. Pt is 15 weeks , DESI 11/22/2019. Transition of care: patient was not received from another setting of care. Onset of symptoms was June 02, 2019. Risk Assessment: Do you want to hurt yourself or someone else? Patient reports no desire to harm self or others. Initial Sepsis Screen: Does the patient meet any 2 criteria? No. Patient's initial sepsis screen is negative. Does the patient have a suspected source of infection? No. Patient's initial sepsis screen is negative. Care prior to arrival: None. 09:45 Method Of Arrival: Ambulatory 09:45 Acuity: PRATEEK 4 hb Triage Assessment: 09:55 Headache History: The patient has had previous headaches and this one is similar to rb1 previous episodes. 09:55 Pain: Pain began today. rb1 09:55 Pain: Also complains of nausea. 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 - Social history:: Smoking status: Patient/guardian denies using tobacco. - Ebola Screening: : No symptoms or risks identified at this time. - Family history:: not pertinent. - Hospitalizations: : No recent hospitalization is reported. Screenin:55 Abuse screen: Denies threats or abuse. Nutritional screening: No deficits noted. rb1 Tuberculosis screening: No symptoms or risk factors identified. Fall Risk None identified. Assessment: 09:55 General: Appears in no apparent distress. comfortable, Behavior is calm, cooperative, rb1 Reports fever for 1-2 days. Pain: Complains of pain in head and throat Pain currently is 8 out of 10 on a pain scale. Neuro: Level of Consciousness is awake, alert, obeys commands, Oriented to person, place, time, situation. Cardiovascular: Capillary refill < 3 seconds is brisk in bilateral fingers. Respiratory: Airway is patent Respiratory effort is even, unlabored, Respiratory pattern is regular, symmetrical, Denies cough. GI: Reports diarrhea, nausea, since this morning. : No signs and/or symptoms were reported regarding the genitourinary system. EENT: Throat is reddened has enlarged tonsils Reports pain when swallowing. Derm: Skin is pink, warm \T\ dry. 09:55 Neuro: Reports headache frontal area. rb1 10:48 Reassessment: Patient appears in no apparent distress at this time. No changes from rb1 previously documented assessment. 11:45 Reassessment: Patient appears in no apparent distress at this time. Patient and/or rb1 family updated on plan of care and expected duration. Pain level reassessed. Patient is alert, oriented x 3, equal unlabored respirations, skin warm/dry/pink. Vital Signs: 09:49 BP 109 / 72; Pulse 104; Resp 98; Temp 97.9(TE); Pulse Ox 99% on R/A; Weight 84.82 kg; hb Height 5 ft. 3 in. (160.02 cm); Pain 7/10; 10:48 BP 111 / 69; Pulse 104; Resp 17; Pulse Ox 97% on R/A; Pain 8/10; rb1 11:45 BP 103 / 61; Pulse 87; Resp 16; Temp 98.1(O); Pulse Ox 98% on R/A; Pain 5/10; rb1 09:49 Body Mass Index 33.13 (84.82 kg, 160.02 cm) ED Course: 09:40 Patient arrived in ED. ag5 09:41 None, None is Private Physician. ag5 09:48 Triage completed. hb 09:49 Arm band placed on. hb 09:55 Dayanara Soto, RN is Primary Nurse. rb1 09:55 Patient has correct armband on for positive identification. Bed in low position. Call rb1 light in reach. Side rails up X 1. Pulse ox on. NIBP on. Warm blanket given. 10:11 Strep Sent. rb1 10:11 Flu Sent. rb1 10:20 Daphne, Robin, MD is Attending Physician. wa 10:35 Inserted saline lock: 22 gauge in right antecubital area, using aseptic technique. rb1 10:53 Urine collected: clean catch specimen, clear. 5 11:59 No provider procedures requiring assistance completed. IV discontinued, intact, rb1 bleeding controlled, No redness/swelling at site. Pressure dressing applied. Administered Medications: 10:33 Drug: Tylenol 1000 mg Route: PO; rb1 11:10 Follow up: Response: No adverse reaction; Pain is decreased rb1 10:35 Drug: NS 0.9% 1000 ml Route: IV; Rate: 1 bolus; Site: right antecubital; rb1 11:38 Follow up: IV Status: Completed infusion rb1 10:40 Drug: Rocephin - (cefTRIAXone) 1 grams Route: IVPB; Infused Over: 30 mins; Site: right rb1 antecubital; 11:10 Follow up: Response: No adverse reaction; IV Status: Completed infusion rb1 Outcome: 11:24 Discharge ordered by . wa 11:59 Patient left the ED. rb1 11:59 Discharged to home ambulatory, with significant other. rb1 11:59 Condition: stable 11:59 Discharge instructions given to patient, Instructed on discharge instructions, follow up and referral plans. medication usage, Demonstrated understanding of instructions, follow-up care, medications, Prescriptions given X 1. Signatures: Dayanara Soto, Alivia Ye RN, RN RN hb Martinez, Maria 5 Robin Serna MD MD wa Gaskin, Ajare 5
--- NOTE | 2019-06-03 11:26 | EDPHYS ---
Physician Documentation [facility] Name: Clara Ruth Age: 23 yrs Sex: Female : 1995 Arrival Date: 06/03/2019 Time: 09:40 Bed 15 Private MD: None, None ED Physician Robin Serna HPI: 06/03 10:31 This 23 yrs old Female presents to ER via Ambulatory with complaints of wa Headache, Tonsils. 10:31 The patient presents with sore throat. The patient describes throat pain as constant, wa painful swallowing. Onset: The symptoms/episode began/occurred yesterday. Severity of symptoms: At their worst the symptoms were moderate, in the emergency department the symptoms are unchanged. Modifying factors: The symptoms are alleviated by nothing, the symptoms are aggravated by swallowing. Associated signs and symptoms: Pertinent positives: chills, fever, Sore throat diarrhea x 1. The patient has not experienced similar symptoms in the past. The patient has not recently seen a physician. states she's 15 weeks . denies painful urination, abd pain, cough, chest pain or SOB. denies vag bleed. 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 - Social history:: Smoking status: Patient/guardian denies using tobacco. - Ebola Screening: : No symptoms or risks identified at this time. - Family history:: not pertinent. - Hospitalizations: : No recent hospitalization is reported. ROS: 10:33 Eyes: Negative for injury, pain, redness, and discharge, Neck: Negative for injury, wa pain, and swelling, Cardiovascular: Negative for chest pain, palpitations, and edema, Respiratory: Negative for shortness of breath, cough, wheezing, and pleuritic chest pain, Abdomen/GI: Negative for abdominal pain, nausea, vomiting, diarrhea, and constipation, Back: Negative for injury and pain, : Negative for injury, bleeding, discharge, and swelling, MS/Extremity: Negative for injury and deformity, Skin: Negative for injury, rash, and discoloration, Psych: Negative for depression, anxiety, suicide ideation, homicidal ideation, and hallucinations. 10:33 Constitutional: Positive for body aches, chills, fever, Negative for weight loss. 10:33 ENT: Positive for sore throat, Negative for nasal discharge, rhinorrhea. 10:33 Neuro: Positive for headache, Negative for altered mental status, dizziness, syncope. 10:33 All other systems are negative. Exam: 10:34 Head/Face: Normocephalic, atraumatic. Eyes: Pupils equal round and reactive to light, wa extra-ocular motions intact. Lids and lashes normal. Conjunctiva and sclera are non-icteric and not injected. Cornea within normal limits. Periorbital areas with no swelling, redness, or edema. Neck: Trachea midline, no thyromegaly or masses palpated, and no cervical lymphadenopathy. Supple, full range of motion without nuchal rigidity, or vertebral point tenderness. No Meningismus. Cardiovascular: Regular rate and rhythm with a normal S1 and S2. No gallops, murmurs, or rubs. Normal PMI, no JVD. No pulse deficits. Respiratory: Lungs have equal breath sounds bilaterally, clear to auscultation and percussion. No rales, rhonchi or wheezes noted. No increased work of breathing, no retractions or nasal flaring. Abdomen/GI: Soft, non-tender, with normal bowel sounds. No distension or tympany. No guarding or rebound. No evidence of tenderness throughout. Back: No spinal tenderness. No costovertebral tenderness. Full range of motion. Skin: Warm, dry with normal turgor. Normal color with no rashes, no lesions, and no evidence of cellulitis. MS/ Extremity: Pulses equal, no cyanosis. Neurovascular intact. Full, normal range of motion. Psych: Awake, alert, with orientation to person, place and time. Behavior, mood, and affect are within normal limits. 10:34 Constitutional: The patient appears in no acute distress, alert, well groomed, well nourished. 10:34 ENT: External ear(s): are unremarkable, Ear canal(s): are normal, TM's: obscured by wax, Posterior pharynx: Tonsils: bilaterally enlarged, with erythema, with exudate, no ulcerations, erythema, exudate, that is moderate. Vital Signs: 09:49 BP 109 / 72; Pulse 104; Resp 98; Temp 97.9(TE); Pulse Ox 99% on R/A; Weight 84.82 kg; hb Height 5 ft. 3 in. (160.02 cm); Pain 7/10; 10:48 BP 111 / 69; Pulse 104; Resp 17; Pulse Ox 97% on R/A; Pain 8/10; rb1 11:45 BP 103 / 61; Pulse 87; Resp 16; Temp 98.1(O); Pulse Ox 98% on R/A; Pain 5/10; rb1 09:49 Body Mass Index 33.13 (84.82 kg, 160.02 cm) hb MDM: 10:20 Patient medically screened. ri 10:35 Differential diagnosis: noted with hypertrphied exudative tonsils. consider strep. r/o wa flu. pt preg, check UA to r/u UTI. will give a dose of tylenol for pain and a bolus of fluids. will reassess. Data reviewed: vital signs, nurses notes, lab test result(s). 10:37 Test interpretation: by ED physician or midlevel provider: noted strep positive. will wa give a dose of rocephin. consider augmentin as a script. 11:23 Test interpretation: by ED physician or midlevel provider: UA noted for rbc's and wa ketones. . Response to treatment: the patient's symptoms have markedly improved after treatment. 06/03 10:03 Order name: Flu; Complete Time: 10:37 [facility] 06/03 10:03 Order name: Strep; Complete Time: 10:27 [facility] 06/03 10:28 Order name: Urine Microscopic Only; Complete Time: 11:23 ri 06/03 11:02 Order name: Urine Dipstick--Ancillary (enter results) bd 06/03 10:27 Order name: Urine Dipstick-Ancillary (obtain specimen); Complete Time: 10:53 ri Administered Medications: 10:33 Drug: Tylenol 1000 mg Route: PO; rb1 11:10 Follow up: Response: No adverse reaction; Pain is decreased rb1 10:35 Drug: NS 0.9% 1000 ml Route: IV; Rate: 1 bolus; Site: right antecubital; rb1 11:38 Follow up: IV Status: Completed infusion rb1 10:40 Drug: Rocephin - (cefTRIAXone) 1 grams Route: IVPB; Infused Over: 30 mins; Site: right rb1 antecubital; 11:10 Follow up: Response: No adverse reaction; IV Status: Completed infusion rb1 Disposition: 06/03/19 11:24 Discharged to Home. Impression: Acute throat pain, strep pharyngitis, dehydration. - Condition is Stable. - Discharge Instructions: Strep Throat, [id number]. - Prescriptions for Augmentin 875- 125 mg Oral Tablet - take 1 tablet by ORAL route every 12 hours for 5 days; 10 tablet. - Work release form, Medication Reconciliation Form, Thank You Letter, Antibiotic Education, Prescription Opioid Use form. - Follow up: Private Physician; When: 2 - 3 days; Reason: Re-evaluation by your physician. - Problem is new. - Symptoms have improved. - Notes: take 2 extra-strength tylemol 2-3 times a day as needed for throat pain. take antibiotics as prescribed. see your doctor or return here immediately if worsening or not improving Signatures: Dispatcher [employer] EDDayanara Best RN RN [facility] Alivia Pereira RN RN Robin Serna MD MD wa Corrections: (The following items were deleted from the chart) 11:59 11:24 06/03/2019 11:24 Discharged to Home. Impression: Acute throat pain; strep rb1 pharyngitis; dehydration. Condition is Stable. Forms are Medication Reconciliation Form, Thank You Letter, Antibiotic Education, Prescription Opioid Use. Follow up: Private Physician; When: 2 - 3 days; Reason: Re-evaluation by your physician. Problem is new. Symptoms have improved. wa
[2019-06-03 20:37] LABS: Urine Blood TRACE (NEG); Urine Glucose NEGATIVE (NEG); Urine Protein NEGATIVE (NEG); Urine Specific Gravity 1.025 (1.005-1.030)
== END 2019-06-03 11:59 | disposition home or self-care (01) ==
LOC: ER 09:37
DX: J02.0 Streptococcal pharyngitis (principal); E86.0 Dehydration
CPT/HCPCS: 96365; 96361; 87081; 87804 ×2; 99284; J0696; J7030; 81003; 81015

== ENCOUNTER 2019-08-02 15:02 | Emergency (ER) | payer OTHER ==
--- OUTSIDE RECORDS SUMMARY | 2019-08-02 15:03 | XMS REPORT ---
:1995 [facility] Address [address] [place] [address] Care Team Providers Name Role Phone Unavailable Unavailable Unavailable Payers Payer Name Policy Type Policy Number Effective Date Expiration Date Problems This patient has no known problems. Allergies, Adverse Reactions, Alerts This patient has no known allergies or adverse reactions. Medications This patient has no known medications. Results Test Description Test Time Test Comments Text Results Atomic Results Result Comments - US 2019-07-09 Patient Name: STACY OJEDA Unit No: [id number] PREG 15:56:00 EXAMS: CPT CODE: AFTER [id number] US PREG AFTER 1ST TRI [id number] [place] [address]'[facility] [address] [place], [place] [address] OBSTETRICAL ULTRASOUND REPORT Pat. Name: STACY OJEDA Pat. No: [id number] Study Date: 07/09/2019 3:00pm , Age: 10 1995, 24 Pregnancies: 3, Para 2 LMP: 02/21/2019 GA by LMP: 19w5d GA by US: 20w0d GA Selected: 20w4d (From Known E) DESI: 11/22/2019 Referring MD: ARLETTE STEVENSON Finishing Room Operator: Teresa Fernandez RDMS CPT4: [id number] Hist/Ind: scan1 anatomy MEASUREMENTS AGE GROWTH EVALUATION Measurement GA Range Srce %for GA Ratios ----- ---- ------- BPD 4.7 cm 20w1d (27v0n-27b2d) Hadl BPD 39% FL/BPD 0.68 HC 17.5 cm 19w6d (72g8q-00c0l) Hadl HC 31% FL/AC 0.21 APD 4.8 cm APD HC/AC 1.12 (1.06 - 1.24) TAD 5.1 cm TAD CI 0.80 (0.70 - 0.86) AC 15.6 cm 20w3d (52l8z-15n4j) Hadl AC 47% FL 3.2 cm 19w5d (42y2z-62h6g) Hadl FL 30% HL 3.1 cm 20w3d (57a2u-49f8e) Alexandr HL 47% GA for sonogram 20w0d (56v3w-07f5y) Weight Estimate: based on (BPD,HC,AC,FL) Hadlock Weight: 348 gm (298-399) Hadlock : 0lbs, 12oz Cervical Length: 3.6 cm Heart Rate: 143 bpm MATERNAL ANATOMY Ovaries LxHxW (cm) Right 3.1 x 1.9 x 1.5 Vol: 4.6cc Left 2.5 x 1.5 x 1.6 Vol: 3.1cc CLINICAL SUMMARY Type of Gestation: Jefferson Intrauterine in vertex presentation. size is appropriate for gestational age. motion and organs seen: heart motion seen body and limb movements seen Four chamber heart observed Left ventricular outflow tract (LVOT) seen Right ventricular outflow tract (RVOT) seen Regular cardiac rhythm observed [facility] NAME: STACY OJEDA Radiology Department PHYS: Arlette Gottlieb MD [address] : 1995 AGE: 24 SEX: [place], [place] [address] LOC: VijayaRAD PHONE #: [phone] EXAM DATE: 07/09/2019 STATUS: REG CLI FAX #: [phone] RAD NO: Page 1 Signed Report (CONTINUED) Patient Name: STACY OJEDA Unit No: [id number] EXAMS: CPT CODE: [id number] US PREG AFTER TRI 62409 <Continued> Normal intracranial anatomy seen Umbilical cord insertion in fetus seen stomach, Renal Fossa, Bladder and Spine seen Three vessel umbilical cord noted abnormalities observed: None seen at this exam Placental location: Anterior Placental maturity : Grade 1 There is no evidence of placenta previa. Amniotic fluid volume is normal. Uterus and adnexa: No significant abnormality is seen. Tabitha Stewart M.D. Electronic Signature 07/09/2019 03:56pm at 1556 Reported and signed by: Tabitha Stewart MD CC: Arlette Stevenson MD Technologist: Teresa Fernandez RDMS Probe: Trnscrbd D/ ([id number]) [id number] Orig Print D/T: S: 07/09/2019 (1938) [facility] NAME: STACY OJEDA Radiology Department PHYS: Arlette Gottlieb MD [address] : 1995 AGE: 24 SEX: [place] [address] LOC: [email or web address] PHONE #: [phone] EXAM DATE: 07/09/2019 STATUS: REG CLI FAX #: [phone] RAD NO: Page 2 Signed Report Patient Name: STACY OJEDA Unit No: [id number] EXAMS: CPT CODE: [id number] US PREG AFTER 1ST TRI [id number] <Continued> [facility] NAME: STACY OJEDA Radiology Department PHYS: Arlette Gottlieb MD [address] : 1995 AGE: 24 SEX: [place] [address] LOC: [email or web address] PHONE #: [phone] EXAM DATE: 07/09/2019 STATUS: REG CLI FAX #: [phone] RAD NO: Page 3 Signed Report
--- NOTE | 2019-08-02 15:46 | EDPHYS ---
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 - Social history:: Smoking status: Patient/guardian denies using tobacco. - Ebola Screening: : Patient denies travel to an Ebola-affected area in the 21 days before illness onset. ROS: 16:04 Constitutional: Negative for fever, chills, and weight loss, Eyes: Negative for injury, snw pain, redness, and discharge, ENT: Negative for injury, pain, and discharge, Neck: Negative for injury, pain, and swelling, Cardiovascular: Negative for chest pain, palpitations, and edema, Respiratory: Negative for shortness of breath, cough, wheezing, and pleuritic chest pain, Abdomen/GI: Negative for abdominal pain, nausea, vomiting, diarrhea, and constipation, Back: Negative for injury and pain, : Negative for injury, bleeding, discharge, and swelling, MS/Extremity: Negative for injury and deformity, Skin: Negative for injury, rash, and discoloration. 16:04 Neuro: Positive for headache. Exam: 16:04 Constitutional: This is a well developed, well nourished patient who is awake, alert, snw and in no acute distress. Head/Face: Normocephalic, atraumatic. Eyes: Pupils equal round and reactive to light, extra-ocular motions intact. Lids and lashes normal. Conjunctiva and sclera are non-icteric and not injected. Cornea within normal limits. Periorbital areas with no swelling, redness, or edema. ENT: Nares patent. No nasal discharge, no septal abnormalities noted. Tympanic membranes are normal and external auditory canals are clear. Oropharynx with no redness, swelling, or masses, exudates, or evidence of obstruction, uvula midline. Mucous membranes moist. Neck: Trachea midline, no thyromegaly or masses palpated, and no cervical lymphadenopathy. Supple, full range of motion without nuchal rigidity, or vertebral point tenderness. No Meningismus. Chest/axilla: Normal chest wall appearance and motion. Nontender with no deformity. No lesions are appreciated. Cardiovascular: Regular rate and rhythm with a normal S1 and S2. No gallops, murmurs, or rubs. Normal PMI, no JVD. No pulse deficits. Respiratory: Lungs have equal breath sounds bilaterally, clear to auscultation and percussion. No rales, rhonchi or wheezes noted. No increased work of breathing, no retractions or nasal flaring. Abdomen/GI: Soft, non-tender, with normal bowel sounds. No distension or tympany. No guarding or rebound. No evidence of tenderness throughout. Back: No spinal tenderness. No costovertebral tenderness. Full range of motion. Skin: Warm, dry with normal turgor. Normal color with no rashes, no lesions, and no evidence of cellulitis. MS/ Extremity: Pulses equal, no cyanosis. Neurovascular intact. Full, normal range of motion. Neuro: Awake and alert, GCS 15, oriented to person, place, time, and situation. Cranial nerves II-XII grossly intact. Motor strength 5/5 in all extremities. Sensory grossly intact. Cerebellar exam normal. Normal gait. Psych: Awake, alert, with orientation to person, place and time. Behavior, mood, and affect are within normal limits. Vital Signs: 15:11 BP 112 / 53; Pulse 98; Resp 18; Temp 97.6; Pulse Ox 99% on R/A; Weight 85.28 kg (R); aj1 Height 5 ft. 3 in. (160.02 cm) (R); 15:11 Body Mass Index 33.30 (85.28 kg, 160.02 cm) aj1 MDM: 15:19 Patient medically screened. snw 16:05 Data reviewed: vital signs, nurses notes. Data interpreted: Pulse oximetry: on room air snw is 99 %. Interpretation: normal. Counseling: I had a detailed discussion with the patient and/or guardian regarding: the historical points, exam findings, and any diagnostic results supporting the discharge/admit diagnosis, lab results, to return to the emergency department if symptoms worsen or persist or if there are any questions or concerns that arise at home. Special discussion: Based on the history and exam findings, there is no indication for further emergent testing or inpatient evaluation. I discussed with the patient/guardian the need to see the OB Gyne specialist for further evaluation of the symptoms. I discussed with the patient/guardian the need to see the primary care provider for further evaluation of the symptoms. 08/02 15:53 Order name: Urine Dipstick--Ancillary (enter results); Complete Time: 16:03 em1 Administered Medications: No medications were administered Disposition: 08/02/19 15:46 Discharged to Home. Impression: Headache, Volume depletion, unspecified, state, incidental. - Condition is Stable. - Discharge Instructions: General Headache Without Cause, Rehydration, Adult. - Work release form, Medication Reconciliation Form, Thank You Letter, Antibiotic Education, Prescription Opioid Use form. - Follow up: Private Physician; When: 2 - 3 days; Reason: Recheck today's complaints, Continuance of care, Re-evaluation by your physician. Follow up: Emergency Department; When: As needed; Reason: Worsening of condition. Addendum: 08/05/2019 07:07 Co-signature as Attending Physician, Darío Son MD I agree with the assessment and c abarca plan of care. Signatures: Dispatcher [employer] Nathalia Obrien RN RN aj1 Darío Son MD MD cha Therrien, Shelly, DRILLING SUPERVISOR-C DRILLING SUPERVISOR-Csnw Tana Townsend, RN RN aa5 Corrections: (The following items were deleted from the chart) 08/02 16:10 15:46 08/02/2019 15:46 Discharged to Home. Impression: Headache; Volume depletion, aa5 unspecified; state, incidental. Condition is Stable. Forms are Medication Reconciliation Form, Thank You Letter, Antibiotic Education, Prescription Opioid Use. Follow up: Private Physician; When: 2 - 3 days; Reason: Recheck today's complaints, Continuance of care, Re-evaluation by your physician. Follow up: Emergency Department; When: As needed; Reason: Worsening of condition. snw
--- NOTE | 2019-08-02 15:46 | ER ---
Nurse's Notes [facility] Name: Clara Ruth Age: 24 yrs Sex: Female : 1995 Arrival Date: 08/02/2019 Time: 15:04 Bed 11 Private MD: None, None Diagnosis: Headache;Volume depletion, unspecified; state, incidental Presentation: 08/02 15:10 Presenting complaint: Patient states: "I've had a really bad sinus headache since aj1 yesterday and I told my job and they told me not to come in and that I needed to go see the doctor" Denies fever, denies cough. Patient reports that she is currently 6 months . Transition of care: patient was not received from another setting of care. Onset of symptoms was July 2019. Risk Assessment: Do you want to hurt yourself or someone else? Patient reports no desire to harm self or others. Initial Sepsis Screen: Does the patient meet any 2 criteria? No. Patient's initial sepsis screen is negative. Does the patient have a suspected source of infection? No. Patient's initial sepsis screen is negative. Care prior to arrival: None. 15:10 Method Of Arrival: Ambulatory aj1 15:10 Acuity: PRATEEK 4 aj1 Triage Assessment: 15:11 Headache History: Denies prior headaches. General: Appears in no apparent distress. aj1 comfortable, Behavior is calm, cooperative, appropriate for age. Pain: Complains of pain in forehead Pain does not radiate. Pain Quality of pain is described as aching, pressure, Pain began 1 day ago. Is continuous, Also complains of no other associated symptoms. EENT: No signs and/or symptoms were reported regarding the EENT system. Neuro: Level of Consciousness is awake, alert, obeys commands, Oriented to person, place, time, situation, Surgical Technology Instructor are equal bilaterally Moves all extremities. Full function Gait is steady, Speech is normal, Reports headache. Cardiovascular: Patient's skin is warm and dry. Respiratory: Airway is patent Respiratory effort is even, unlabored, Respiratory pattern is regular, symmetrical. GI: No signs and/or symptoms were reported involving the gastrointestinal system. : No signs and/or symptoms were reported regarding the genitourinary system. Derm: No signs and/or symptoms reported regarding the dermatologic system. Skin is pink, warm \\T\\ dry. normal. Musculoskeletal: No signs and/or symptoms reported regarding the musculoskeletal system. Circulation, motion, and sensation intact. 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 - Social history:: Smoking status: Patient/guardian denies using tobacco. - Ebola Screening: : Patient denies travel to an Ebola-affected area in the 21 days before illness onset. Screenin:13 Abuse screen: Denies threats or abuse. Denies injuries from another. Nutritional aj1 screening: No deficits noted. Tuberculosis screening: No symptoms or risk factors identified. Fall Risk None identified. Assessment: 15:13 Reassessment: see triage assessment. aj1 16:09 Reassessment: Patient is alert, oriented x 3, equal unlabored respirations, skin aa5 warm/dry/pink. Vital Signs: 15:11 BP 112 / 53; Pulse 98; Resp 18; Temp 97.6; Pulse Ox 99% on R/A; Weight 85.28 kg (R); aj1 Height 5 ft. 3 in. (160.02 cm) (R); 15:11 Body Mass Index 33.30 (85.28 kg, 160.02 cm) aj1 ED Course: 15:04 Patient arrived in ED. as 15:04 None, None is Private Physician. as 15:11 Triage completed. aj1 15:13 Arm band placed on Patient placed in an exam room. aj1 15:13 Patient has correct armband on for positive identification. aj1 15:13 No provider procedures requiring assistance completed. aj1 15:18 Luisa Land FNP-C is [facility]. snw 15:18 Darío Son MD is Attending Physician. snw 15:45 Urine collected: clean catch specimen, cloudy, fred colored. jb1 16:10 Patient did not have IV access during this emergency room visit. aa5 Administered Medications: No medications were administered Outcome: 15:46 Discharge ordered by . snw 16:09 Discharged to home ambulatory. aa5 16:09 Condition: good 16:09 Discharge instructions given to patient, Instructed on discharge instructions, follow up and referral plans. Demonstrated understanding of instructions, follow-up care. 16:10 Patient left the ED. aa5 Signatures: Richardson Flores jb1 Nathalia Britt RN RN aj1 Luisa Land, REAL ESTATE ACCOUNT EXECUTIVE-C REAL ESTATE ACCOUNT EXECUTIVE-Csnw Mansi Chaparro as Tana Townsend, CAMACHO RN aa5 Corrections: (The following items were deleted from the chart) 15:13 15:10 Presenting complaint: Patient states: "I've had a really bad sinus headache since aj1 yesterday and I told my job and they told me not to come in and that I needed to go see the doctor" Denies fever, denies cough aj1 16:13 15:16 Tana Townsend, RN is Primary Nurse. aa5 aa5
[2019-08-02 15:57] LABS: Urine Blood TRACE (NEG); Urine Glucose NEGATIVE (NEG); Urine Protein NEGATIVE (NEG); Urine Specific Gravity >1.030 (1.005-1.030)
[2019-08-02 17:33] VITALS: BP 112/53; TEMP 97.6; O2SAT 99
== END 2019-08-02 16:10 | disposition home or self-care (01) ==
LOC: ER 15:02
DX: E86.9 Volume depletion, unspecified (principal); Z33.1 Pregnant state, incidental; Z88.6 Allergy status to analgesic agent
CPT/HCPCS: 81003; 99283

== ENCOUNTER 2019-10-28 09:17 | Emergency (ER) | payer OTHER ==
--- OUTSIDE RECORDS SUMMARY | 2019-10-28 09:34 | XMS REPORT ---
:1995 [facility] [address] [place] [address] Care Team Providers Name Role Phone Unavailable [...] 2019-07-09 Patient Name: STACY OJEDA Unit No: [id number] PREG 15:56:00 EXAMS: CPT CODE: AFTER [id number] US PREG AFTER 1ST TRI [address] [place] [address]'[facility] [address] [place], [place] [address] OBSTETRICAL ULTRASOUND REPORT Pat. Name: STACY OJEDA Pat. No: [id number] Study Date: 07/09/2019 3:00pm , Age: 10 1995, 24 Pregnancies: 3, Para 2 LMP: 02/21/2019 GA by LMP: 19w5d GA by US: 20w0d GA Selected: 20w4d (From Known E) DESI: 11/22/2019 Referring MD: ARLETTE STEVENSON News Production Assistant: Teresa Fernandez RDMS CPT4: [id number] Hist/Ind: scan1 anatomy MEASUREMENTS AGE GROWTH EVALUATION Measurement GA Range Srce %for GA Ratios ----- ---- ------- BPD 4.7 cm 20w1d (09d7f-03h8f) Hadl BPD 39% FL/BPD 0.68 HC 17.5 cm 19w6d (78a8y-30a0q) Hadl HC 31% FL/AC 0.21 APD 4.8 cm APD HC/AC 1.12 (1.06 - 1.24) TAD 5.1 cm TAD CI 0.80 (0.70 - 0.86) AC 15.6 cm 20w3d (60o0l-74u8n) Hadl AC 47% FL 3.2 cm 19w5d (63b2e-30g3v) Hadl FL 30% HL 3.1 cm 20w3d (96r4v-80w0k) Alexandr HL 47% GA for sonogram 20w0d (53x1s-99j3f) Weight Estimate: based on (BPD,HC,AC,FL) Hadlock Weight: [...] (RVOT) seen Regular cardiac rhythm observed [facility] NAME: STACY OJEDA Radiology Department PHYS: Arlette Gottlieb MD [address] : 1995 AGE: 24 SEX: [place], [place] [address] LOC: VijayaRAD PHONE #: [phone] EXAM DATE: 07/09/2019 STATUS: REG CLI FAX #: [phone] RAD NO: Page 1 Signed Report (CONTINUED) Patient Name: STACY OJEDA Unit No: [id number] EXAMS: CPT CODE: [id number] US PREG AFTER TRI 26829 <Continued> Normal intracranial anatomy seen Umbilical cord [...] Technologist: Teresa Fernandez RDMS Probe: Trnscrbd D/ ([id number]) t.SDR.NMG Orig Print D/T: S: 07/09/2019 ([id number]) [facility] NAME: STACY OJEDA Radiology Department PHYS: Arlette Gottlieb MD [address] : 1995 AGE: 24 SEX: [place] [address] LOC: [email or web address] PHONE #: [phone] EXAM DATE: 07/09/2019 STATUS: REG CLI FAX #: [phone] RAD NO: Page 2 Signed Report Patient Name: STACY OJEDA Unit No: [id number] EXAMS: CPT CODE: [id number] US PREG AFTER 1ST TRI 32167 <Continued> [facility] NAME: STACY OJEDA Radiology Department PHYS: Arlette Gottlieb MD [address] : 1995 AGE: 24 SEX: F [place] [address] LOC: [email or web address] PHONE #: [phone] EXAM DATE: 07/09/2019 STATUS: REG CLI FAX #: [phone] RAD NO: Page 3 Signed Report
[2019-10-28 10:39] LABS: Urine Blood NEGATIVE (NEG); Urine Glucose NEGATIVE (NEG); Urine Protein NEGATIVE (NEG); Urine Specific Gravity >1.030 (1.005-1.030)
--- NOTE | 2019-10-28 11:04 | RAD REPORT ---
EXAM DESCRIPTION: Eb Montemayor (2 Views)10/28/2019 10:54 am CLINICAL HISTORY: Cough COMPARISON: April 2019 FINDINGS: The lungs appear clear of acute infiltrate. The heart is normal size IMPRESSION: No acute abnormalities displayed
--- NOTE | 2019-10-28 11:06 | ER ---
Nurse's Notes [facility] Name: Clara Ruth Age: 24 yrs Sex: Female : 1995 Arrival Date: 10/28/2019 Time: 09:21 Bed 23 Private MD: Diagnosis: Cough;Acute upper respiratory infection, unspecified; related exhaustion and fatigue, third trimester; related conditions, unspecified, third trimester Presentation: 10/28 09:55 Presenting complaint: Patient states: "yesterday when I woke up, I kind of had a cough. ss My throat is not sore, but it's scratchy. I'm stuffy and this morning, I woke up with a bad headache." Tylenol last taken at 0500 this AM. Transition of care: patient was not received from another setting of care. Onset of symptoms was October 27, 2019. Risk Assessment: Do you want to hurt yourself or someone else? Patient reports no desire to harm self or others. Initial Sepsis Screen: Does the patient meet any 2 criteria? HR > 90 bpm. Does the patient have a suspected source of infection? No. Patient's initial sepsis screen is negative. Care prior to arrival: None. 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 - Coronavirus screen:: The patient has NOT traveled to [place], [place], or [place] in the past 14 days. Proceed with normal triage process as indicated. - Social history:: Smoking status: Patient denies any tobacco usage or history of. - Family history:: not pertinent. - Ebola Screening: : Patient denies exposure to infectious person Patient denies travel to an Ebola-affected area in the 21 days before illness onset. Screenin:35 Abuse screen: Denies threats or abuse. Denies injuries from another. Nutritional ss screening: No deficits noted. Tuberculosis screening: Never had TB. Fall Risk None identified. Assessment: 09:55 General: Appears uncomfortable, ill, Behavior is calm, cooperative. General: Reports ss chills for 12-24 hours, fever for 12-24 hours, feeling ill for 12-24 hours, fatigue for 12-24 hours. Pain: Complains of pain in headache, general body aches Pain currently is 7 out of 10 on a pain scale. Quality of pain is described as aching. Neuro: Level of Consciousness is awake, alert, obeys commands, Oriented to person, place, time, situation. Neuro: Reports headache Denies dizziness, numbness. Cardiovascular: Capillary refill < 3 seconds is brisk in bilateral fingers. Respiratory: Airway is patent Respiratory effort is even, unlabored, Respiratory pattern is regular, symmetrical. Respiratory: Reports cough that is hacking, persistent Breath sounds are clear bilaterally. GI: Abdomen is round Pt is 38 weeks Patient currently denies diarrhea, nausea, vomiting. : Denies burning with urination, urinary frequency. EENT: Nares are clear Oral mucosa is moist. Throat is clear. Derm: Skin is intact, is healthy with good turgor, Skin is dry, Skin is pink, warm \\T\\ dry. Musculoskeletal: Range of motion: intact in all extremities, Swelling absent. Vital Signs: 09:56 BP 129 / 76; Pulse 108; Resp 15; Temp 98.4(TE); Pulse Ox 98% on R/A; Weight 92.99 kg; ss Height 5 ft. 3 in. (160.02 cm); Pain 7/10; 09:56 Body Mass Index 36.31 (92.99 kg, 160.02 cm) Vitals: 11:42 Heart Tones 152. ED Course: 09:21 Patient arrived in ED. mr 09:56 Triage completed. ss 09:56 Arm band placed on right wrist. ss 09:58 Darío Son MD is Attending Physician. johanna 10:22 Marilee Mayfield, CAMACHO is Primary Nurse. ss 10:22 Flu Sent. ss 10:22 Strep Sent. ss 10:35 Patient has correct armband on for positive identification. Bed in low position. Call ss light in reach. 11:42 No provider procedures requiring assistance completed. Patient did not have IV access ss during this emergency room visit. Administered Medications: No medications were administered Outcome: 11:05 Discharge ordered by . [facility] 11:43 Discharged to home ambulatory. ss 11:43 Condition: good 11:43 Discharge instructions given to patient, Instructed on discharge instructions, follow up and referral plans. medication usage, Demonstrated understanding of instructions, follow-up care, medications, Prescriptions given X 1. 11:43 Patient left the ED. ss Signatures: Darío Son MD MD cha Rivera Mckenzie mr Marilee Mayfield, RN RN ss
--- NOTE | 2019-10-28 11:07 | EDPHYS ---
Physician Documentation [facility] Name: Clara Ruth Age: 24 yrs Sex: Female : 1995 Arrival Date: 10/28/2019 Time: 09:21 Bed 23 Private MD: ED Physician Darío Son HPI: 10/28 11:02 This 24 yrs old Female presents to ER via Ambulatory with complaints of johanna Headache, Cough. 11:02 The patient complains of pain to the forehead. The patient describes the headache as johanna aching. Onset: The symptoms/episode began/occurred 1 day(s) ago. Associated signs and symptoms: Pertinent positives: , sinus congestion. Headache History: The patient has had previous headaches and this one is similar to previous episodes. 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 - Coronavirus screen:: The patient has NOT traveled to [place], [place], or [place] in the past 14 days. Proceed with normal triage process as indicated. - Social history:: Smoking status: Patient denies any tobacco usage or history of. - Family history:: not pertinent. - Ebola Screening: : Patient denies exposure to infectious person Patient denies travel to an Ebola-affected area in the 21 days before illness onset. ROS: 11:03 Constitutional: Negative for fever, chills, and weight loss, Eyes: Negative for injury, johanna pain, redness, and discharge, ENT: Negative for injury, pain, and discharge, Neck: Negative for injury, pain, and swelling, Cardiovascular: Negative for chest pain, palpitations, and edema, Abdomen/GI: Negative for abdominal pain, nausea, vomiting, diarrhea, and constipation, Back: Negative for injury and pain, : Negative for injury, bleeding, discharge, and swelling, MS/Extremity: Negative for injury and deformity, Skin: Negative for injury, rash, and discoloration, Neuro: Negative for headache, weakness, numbness, tingling, and seizure. 11:03 Respiratory: Positive for cough. 11:03 Neuro: Positive for headache. Exam: 11:03 Constitutional: This is a well developed, well nourished patient who is awake, alert, johanna and in no acute distress. Head/Face: Normocephalic, atraumatic. Eyes: Pupils equal round and reactive to light, extra-ocular motions intact. Lids and lashes normal. Conjunctiva and sclera are non-icteric and not injected. Cornea within normal limits. Periorbital areas with no swelling, redness, or edema. ENT: Nares patent. No nasal discharge, no septal abnormalities noted. Tympanic membranes are normal and external auditory canals are clear. Oropharynx with no redness, swelling, or masses, exudates, or evidence of obstruction, uvula midline. Mucous membranes moist. Neck: Trachea midline, no thyromegaly or masses palpated, and no cervical lymphadenopathy. Supple, full range of motion without nuchal rigidity, or vertebral point tenderness. No Meningismus. Chest/axilla: Normal chest wall appearance and motion. Nontender with no deformity. No lesions are appreciated. Cardiovascular: Regular rate and rhythm with a normal S1 and S2. No gallops, murmurs, or rubs. Normal PMI, no JVD. No pulse deficits. Respiratory: Lungs have equal breath sounds bilaterally, clear to auscultation and percussion. No rales, rhonchi or wheezes noted. No increased work of breathing, no retractions or nasal flaring. Abdomen/GI: Soft, non-tender, with normal bowel sounds. No distension or tympany. No guarding or rebound. No evidence of tenderness throughout. Back: No spinal tenderness. No costovertebral tenderness. Full range of motion. Skin: Warm, dry with normal turgor. Normal color with no rashes, no lesions, and no evidence of cellulitis. MS/ Extremity: Pulses equal, no cyanosis. Neurovascular intact. Full, normal range of motion. Neuro: Awake and alert, GCS 15, oriented to person, place, time, and situation. Cranial nerves II-XII grossly intact. Motor strength 5/5 in all extremities. Sensory grossly intact. Cerebellar exam normal. Normal gait. Psych: Awake, alert, with orientation to person, place and time. Behavior, mood, and affect are within normal limits. Vital Signs: 09:56 BP 129 / 76; Pulse 108; Resp 15; Temp 98.4(TE); Pulse Ox 98% on R/A; Weight 92.99 kg; Height 5 ft. 3 in. (160.02 cm); Pain 7/10; 09:56 Body Mass Index 36.31 (92.99 kg, 160.02 cm) MDM: 09:58 Patient medically screened. [facility] 11:04 Data reviewed: vital signs, nurses notes, lab test result(s), radiologic studies, CT [facility] scan, plain films. 10/28 10:11 Order name: Flu dm5 10/28 10:11 Order name: Strep 5 10/28 10:32 Order name: Urine Dipstick--Ancillary (enter results) 10/28 10:32 Order name: Urine --Ancillary (enter results) 10/28 10:39 Order name: Group A Streptococcus Rapid Sc; Complete Time: 11:04 [facility] 10/28 10:40 Order name: Urine --Ancillary; Complete Time: 11:04 [facility] 10/28 09:59 Order name: Chest Pa And Lat (2 Views) XRAY [facility] 10/28 09:59 Order name: Urine Dipstick-Ancillary (obtain specimen); Complete Time: 10:22 [facility] 10/28 09:59 Order name: Urine Test (obtain specimen); Complete Time: 10:22 [facility] 10/28 10:41 Order name: Urine Dipstick-Ancillary; Complete Time: 11:04 [facility] 10/28 10:59 Order name: Influenza Screen (A ; Complete Time: 11:04 [facility] 10/28 11:02 Order name: FHT's; Complete Time: 11:37 [facility] 10/28 11:09 Order name: RAD EDVT Administered Medications: No medications were administered Disposition: 10/28/19 11:05 Discharged to Home. Impression: Cough, Acute upper respiratory infection, unspecified, related exhaustion and fatigue, third trimester, related conditions, unspecified, third trimester. - Condition is Stable. - Discharge Instructions: Upper Respiratory Infection, Adult, Cool Mist Vaporizer, Upper Respiratory Infection, Adult, [id number], Cough, Adult, [id number], Cough, Adult. - Prescriptions for Benadryl 25 mg Oral Capsule - take 1 capsule by ORAL route every 6 hours As needed; 30 tablet. - Medication Reconciliation Form, Thank You Letter, Antibiotic Education, Prescription Opioid Use, Work release form form. - Follow up: Private Physician; When: 2 - 3 days; Reason: Recheck today's complaints, Continuance of care, Re-evaluation by your physician. - Problem is new. - Symptoms have improved. Signatures: Dispatcher [employer] Darío Tatum MD MD cha Smirch, Shelby, RN RN ss Corrections: (The following items were deleted from the chart) 11:43 11:05 10/28/2019 11:05 Discharged to Home. Impression: Cough; Acute upper respiratory ss infection, unspecified; related exhaustion and fatigue, third trimester; related conditions, unspecified, third trimester. Condition is Stable. Forms are Medication Reconciliation Form, Thank You Letter, Antibiotic Education, Prescription Opioid Use. Follow up: Private Physician; When: 2 - 3 days; Reason: Recheck today's complaints, Continuance of care, Re-evaluation by your physician. Problem is new. Symptoms have improved. johanna
[2019-10-30 04:51] VITALS: BP 129/76; TEMP 98.4; O2SAT 98
== END 2019-10-28 11:43 | disposition home or self-care (01) ==
LOC: ER 09:17
DX: O99.513 Diseases of the respiratory system complicating pregnancy, third trimester (principal); J06.9 Acute upper respiratory infection, unspecified; Z3A.00 Weeks of gestation of pregnancy not specified; R05 Cough
CPT/HCPCS: 71046; 81003; 81025; 87070; 87081; 87804; 99283